=== PATIENT | female | born 1970 | race Caucasian/White ===

== ENCOUNTER 2023-08-03 02:51 | Inpatient (IN) | payer OTHER, SELFPAY ==
[2023-08-03] VITALS (148 sets, daily range): BP systolic 95–155; BP diastolic 62–133; PULSE 89–126; RESP 12–30; TEMP 36.6–37.2; O2SAT 81–99; BMI 26.6
--- NOTE | 2023-08-03 03:34 | USCV_ITS ---
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 History of cardiac ablation therapy. 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 History of cardiac ablation therapy. Previous Vascular Surgery: none Right Brachial BP: 118 / 78 Left Brachial BP: / Right Left Velocity (cm/s) Spectral Plaque Velocity (cm/s) Spectral Plaque Syst/Diast Broadening Syst/Diast Broadening 47.40/ 9.90 Min Homo Prox CCA 69.70 / 20.40 Min Homo 56.50/ 19.10 Min Homo Mid CCA 51.90 / 21.70 Min Homo 55.20/ 21.00 Min Hetro Distal CCA 60.50 / 29.60 Min Hetro 51.90/ 19.70 Min Hetro Prox ICA 44.00 / 17.70 Min Hetro 57.20/ 27.60 Min Hetro Mid ICA 75.60 / 44.00 Min Hetro 29.30/ 10.20 Min Hetro Distal ICA 77.40 / 40.70 Min Hetro 78.90 Min Homo ECA 54.60 Min Homo 1.01 ICA/CCA 1.11 Antegrade Vertebral Antegrade 41.40/ 16.40 cm/s 46.70/ 19.10 cm/s Tri Subclavian Tri 58.50 74.90 CONCLUSIONS Right ICA stenosis <50%. Mild atheromatous plaque right carotid bulb/ICA. Left ICA stenosis <50%. Mild atheromatous plaque left carotid bulb/ICA. Normal antegrade Doppler flow noted in the right vertebral artery. Normal antegrade Doppler flow noted in the left vertebral artery. Noe Celis MD (Electronically Signed) Final Date: 03 August 2023 10:07 S
--- NOTE | 2023-08-03 03:34 | USCV_ITS ---
Mary Moreno Age: 52 Gender: F : 1970 Exam Date: 08/03/2023 04:23 Ordering Phys: Zac Morrow MD Technologist: MICHAEL Exam Location: [facility] – [place], [place] Indication: aphasic CVA. History of ablation therapy. BP: 117 / 93 HR: 92 Rhythm: Sinus Technical Quality: Adequate MEASUREMENTS (Male / Female) Normal Values 2D ECHO LV Diastolic Diameter PLAX 3.8 cm 4.2 - 5.9 / 3.9 - 5.3 cm LV Systolic Diameter PLAX 3.0 cm IVS Diastolic Thickness 1.4 cm 0.6 - 1.0 / 0.6 - 0.9 cm IVS Systolic Thickness 1.8 cm LVPW Diastolic Thickness 1.0 cm 0.6 - 1.0 / 0.6 - 0.9 cm LVPW Systolic Thickness 1.1 cm LVOT Diameter 2.1 cm LV Ejection Fraction 2D Teich 39.7 % LV Ejection Fraction MOD 2C 32.4 % LV Ejection Fraction 2C AL 32.7 % LA Diameter 4.1 cm LA Width 3.9 cm LA Height 6.5 cm RA Width 2.5 cm RA Height 4.2 cm Aorta at Sinotubular Diameter 2.5 cm IVC Diameter 2.1 cm M-MODE Aortic Annulus Diameter 3.1 cm LA Ao Ratio MM 1.3 MV E Point Septal Separation 2.0 cm DOPPLER AV Peak Velocity 83.0 cm/s LVOT Peak Velocity 84.0 cm/s AV Area Cont Eq vti 3.6 cm squared AV Area Cont Eq pk 3.5 cm squared MV Peak Velocity 99.0 cm/s MV Area PHT 4.9 cm squared Mitral E to A Ratio 1.6 MV E' Velocity 52.5 cm/s Mitral E to MV E' Ratio 11.8 Mitral E to LV E' Lateral Ratio 10.3 Mitral E to LV E' Septal Ratio 14.1 TR Peak Velocity 293.3 cm/s TR Peak Gradient 34.4 mmHg TV Peak E Velocity 45.0 cm/s Right Atrial Pressure 10.0 mmHg Pulmonary Artery Systolic Pressu 44.4 mmHg PV Peak Velocity 54.0 cm/s RV Acceleration Time 0.1 s RV Ejection Time 0.3 s RV AcT/ET 0.2 FINDINGS Left Ventricle Left ventricle is normal size. LV systolic function is moderately reduced with EF of 35-40%. Moderate global hypokinesis. Anteroseptal wall is severely hypokinetic. Right Ventricle Normal in size and functon Right Atrium Normal in size Left Atrium Normal in size Mitral Valve Structurally normal mitral valve. Moderate mitral regurgitation. Aortic Valve Structurally normal aortic valve. No significant stenosis or regurgitation. Tricuspid Valve Moderate tricuspid regurgitation. RVSP is 45-50 mmHg. This is consistent with moderate pulmonary hypertension. Pulmonic Valve Not well visualized Pericardium Normal Aorta Normal in size IVC Dilated CONCLUSIONS LV systolic function is moderately reduced with EF of 35 to 40%. Moderate mitral regurgitation Moderate tricuspid regurgitation Moderate pulmonary hypertension IVC is dilated. No comparison studies are available. Mazin Bailey MD (Electronically Signed) Final Date: 03 August 2023 12:21 S
--- NOTE | 2023-08-03 03:36 | P.HP_ITS ---
Providers/Chief Complaint Admitting Physician: Zac Morrow MD Primary Care Provider: Flako Shen MD Chief Complaint: Stroke like symptoms History of Present Illness Mary Moreno is a 52 year old female with a past medical history of hidradenitis suppurativa, on Otezla, Cosentyx, spironolactone, was on antibiotic therapy, hypertension, who presents to [facility] from [place] due to concerns for strokelike symptoms, elevated leukocytosis, and lactic acid. Currently patient is alert oriented x 3, following all commands, she has no complaints of any focal weakness, no slurring of words, no facial droop, denies any focal weakness, she tells me she does not really remember the event, her does, her only complaint is headaches and neck pain. She tells me that she has never had headaches before or neck pain, no blurry vision, no photopsia or floaters, she does have neck pain with range of motion, no fevers, no chills, no nausea, vomiting. According to documentation and my discussion with ER physician, patient presented to ER at about 9 PM due to left- sided weakness, increased confusion and persistent headache, there was mild slurring of his words last known well normal was 6 PM, according to patient's family she had a seizure-like episode. In the emergency room I was told by ER physician that they did a CT head CTA, spoke to [facility] neurology, she was out of the window for tPA, and as she was back to normal she is not a candidate for tPA so they recommended inpatient monitoring, on lab workup she was found to have leukocytosis of 23,000 lactic acid of 5.2 urinalysis was within normal limits chest x-ray within normal limits liver function was within normal limits she does have hidradenitis suppurativa but no recent outbreaks, no focal evidence of infection, her blood sugars were elevated, anion gap was 26, CO2 was 14, she had received fluids, vancomycin, clindamycin. Currently during my examination she really does not have any complaints of dysuria no hematuria no flank pain no shortness of breath, no cough, no fevers, no chills. Her only complaint is a headache and neck pain, kerning sign negative Brudzinski sign negative, no fevers, no chills. She does report a history of alcohol use, daily use of alcohol, usually she drinks a shot of alcohol daily, no history of alcohol withdrawal seizures, no history of blacking out, no history of alcohol withdrawal Review of Systems Const: Denies: fever(s), chills, fatigue or malaise Eyes: Denies: change in vision ENMT: Denies: throat pain Card: Denies: chest pain Resp: Denies: dyspnea GI: Denies: abdominal pain : Denies: flank pain or difficulty voiding Musc: Denies: neck pain or back pain Skin/Breast: Denies: rash Neuro: Denies: headache(s), numbness in extremities, weakness in extremities, frequent falls, dizziness, Slurred speech present or difficulty communicating thoughts Psych: Denies: anxiety Endo: Denies: polyuria Medications/Allergies Home Medications Medication Instructions Recorded Confirmed Last Taken Type apremilast 30 mg tablet (Otezla) 30 mg PO 2XD 08/03/23 08/03/23 1 Day Ago History ~08/02/23 clonazepam 0.5 mg tablet 0.5 mg PO 2XD 08/03/23 08/03/23 1 Day Ago History ~08/02/23 fluoxetine 40 mg capsule 40 mg PO 1XD 08/03/23 08/03/23 1 Day Ago History ~08/02/23 hydrochlorothiazide 25 mg tablet 25 mg PO 1XD 08/03/23 08/03/23 1 Day Ago History ~08/02/23 metoprolol succinate 50 mg 50 mg PO 2XD Heart Rate 08/03/23 08/03/23 1 Day Ago History tablet,extended release 24 hr ~08/02/23 pantoprazole 40 mg tablet,delayed 40 mg PO 1XD 08/03/23 08/03/23 1 Day Ago History release ~08/02/23 secukinumab 150 mg/mL subcutaneous See Rx Instructions .Route .COMPLEX 08/03/23 08/03/23 3 Weeks Ago History pen injector (Cosentyx Pen 300 ~07/13/23 mg/2 Pens () spironolactone 100 mg tablet 100 mg PO 1XD 08/03/23 08/03/23 1 Day Ago History ~08/02/23 zolpidem 5 mg tablet 5 mg PO 1XD Sleep 08/03/23 08/03/23 Unknown History Allergies Allergy/AdvReac Type Severity Reaction Status Date / Time codeine Allergy Unknown Verified 08/03/23 03:02 Penicillins Allergy ALGY-Rash Verified 08/03/23 03:02 PFSH Acute PFSH: Medical History (Updated 08/03/23 @ 03:44 by Zac Morrow MD) History of atrial fibrillation History of hidradenitis suppurativa Surgical History (Updated 08/03/23 @ 03:42 by Zac Morrow MD) History of appendectomy History of cholecystectomy History of radiofrequency ablation procedure for cardiac arrhythmia Family History (Updated 08/03/23 @ 03:43 by Zac Morrow MD) Other CAD (coronary artery disease) Diabetes Social History (Updated 08/03/23 @ 03:43 by Zac Morrow MD) Smoking and tobacco/nicotine status: current every day tobacco/nicotine user e- cigarettes E-Cigarette Details: vaporizer device Alcohol intake: current Alcohol intake frequency: 0-2 Drinks per Day Alcohol type: hard liquor Substance/Drug Use: never Vitals/I&O/Wt Last Vital Signs O2 Del Method Room Air 08/03/23 02:59 Weight last 48 hrs Weight 77.111 kg Physical Exam Const: COMMON NORMALS: no acute distress and patient oriented x3 HENMT: COMMON NORMALS: normocephalic HEAD & SCALP: normocephalic Neck/C-Spine: COMMON NORMALS: no JVD Lymph: LYMPHATIC: no lymphadenopathy noted Resp: COMMON NORMALS: normal respiratory effort, No retractions, No use of accessory muscles and clear to auscultation bilaterally AUSCULTATION: clear to auscultation bilaterally Cardio: COMMON NORMALS: no JVD, regular rate, regular rhythm, S1 normal heart sound present and S2 normal heart sound present RATE: regular rate RHYTHM: regular rhythm HEART SOUNDS: S1 normal heart sound present and S2 normal heart sound present GI: COMMON NORMALS: Normal to inspection, nondistended, normoactive bowel sounds present, Soft to palpation, non-tender, No hepatosplenomegaly present, no masses and no bruits PALPATION: Yes Soft to palpation and Yes No hepatosplenomegaly present : COMMON NORMALS: Yes no CVA tenderness Extremity: COMMON NORMALS: capillary refill normal, no clubbing, cyanosis or edema, no calf tenderness and no pedal edema Neuro: COMMON NORMALS: patient oriented x3, CN's II-XII intact bilaterally, moves all extremities, no focal motor deficits and no sensory deficits noted Psych: COMMON NORMALS: mental status grossly normal A&P Assessment and plan (1) Transient ischemic attack: (2) Elevated lactic acid level: (3) Leukocytosis: (4) Seizure: Plan Transient ischemic attack -She does have a history of atrial fibrillation, status post ablation -Does have hypertension -Currently alert oriented x 3, following all commands no focal weakness denies stroke scale 0 -Seen at [facility], had stroke evaluation, ct head, cta head and neck within normal limits i was told -er provider spoke to neurology at [facility], not candidate for tpa, symptoms had resolved in er plan: -- Neurochecks -Aspiration precautions -NIH stroke scale -Aspirin -Statin -Continue home blood pressure medications -Telemetry monitoring -Cardiac echo -Carotid artery ultrasound -PT OT -Speech therapy eval Seizure -Etiology unclear -Witnessed by family members -Seizure precautions Leukocytosis -Etiology unclear could be reactive -Workup, CRP, Pro-Fabio, sed rate, blood cultures, repeat UA, repeat blood work -With complaints of headaches, neck pain Kernig's sign negative, Babinski sign negative with leukocytosis, elevated lactic acid -Concern for possible meningitis? -Continue vancomycin -Has a allergy to penicillin, rocephin -Will consider lumbar puncture in the morning, based on clinical progress and further broad workup Lactic acidosis -Etiology unclear could be dehydration -Workup as above, A1c, ketones Neck pain -CT neck Hidradenitis suppurativa -On Otezla alcohol use, does have a fine tremor on exam -[facility] protocol full code scd for dvt propylaxis Attestations Medical Necessity Statement*: Patient requires hospitalization, inpatient, greater than 2 midnights, for TIA, seizure, leukocytosis, elevated lactic acid Diagnoses Transient ischemic attack G45.9 Elevated lactic acid level R79.89 Leukocytosis D72.829 Seizure R56.9
--- NOTE | 2023-08-03 03:40 | CT_ITS ---
WS: [id number] CT CERVICAL TRAUMA TECHNIQUE: Noncontrast CT of the cervical spine with coronal and sagittal reformatted images. CLINICAL INFORMATION: neck pain COMPARISON: None. DLP: 1418.[address] scans at [facility] use at least one of these dose optimization techniques: automated e xposure control; mA and/or kV adjustment per patient size (includes targeted exams where dose is matc hed to clinical indication); or iterative reconstruction. FINDINGS: Straightening of the normal cervical lordosis. Normal craniocervical junction. Normal C1-C2 articulat ion. Dens is normal in appearance. Normal occipital condyles. No high-grade spinal canal narrowing. N ormal C1 ring. No evidence of acute fracture or dislocation. Normal prevertebral soft tissues. Mastoids air cells are well aerated. IMPRESSION: No evidence of acute fracture or dislocation.
--- NOTE | 2023-08-03 03:40 | CT_ITS ---
WS: [id number] CT HEAD TECHNIQUE: Noncontrast CT of the head obtained from the skullbase to the vertex. CLINICAL INFORMATION: headache COMPARISON: None. DLP: 1418.[address] scans at [facility] use at least one of these dose optimization techniques: automated e xposure control; mA and/or kV adjustment per patient size (includes targeted exams where dose is matc hed to clinical indication); or iterative reconstruction. FINDINGS: No evidence of intracranial hemorrhage or mass effect. Minimal small vessel changes. No significant p arenchymal volume loss. Ventricular system and basal cisterns are patent. No extra-axial fluid colle ctions. No evidence of mass or mass effect. Normal fraga-white differentiation Mild mucosal thickening ethmoid air cells. Mastoid air cells are well aerated. Retention cyst or poly p in the sphenoid sinus measuring 2.1 cm. IMPRESSION: 1. No evidence of intracranial hemorrhage or mass effect. 2. Minimal small vessel changes. No significant parenchymal volume loss. 3. Retention cyst or polyp in the sphenoid sinus measuring 2.1 cm. 4. No acute intracranial findings.
[2023-08-03 04:10] LABS: Erythrocyte Sedimentation Rate 4 mm/hr (0-15)
[2023-08-03 04:12] LABS: Basophils # 0.1 10^3/uL (0.0-0.1); Basophils % 0.4 %; Eosinophils # 0.1 10^3/uL (0.0-0.8); Eosinophils % 0.8 %; Hematocrit 33.6 % (36-47); Lymphocytes # 2.4 10^3/uL (0.8-4.8); Lymphocytes % 15.2 %; Mean Corpuscular HGB Conc 34.2 g/dL (30-55); Mean Corpuscular Volume 96.6 fl (85-98); Monocytes # 1.2 10^3/uL (0.2-0.9); Monocytes % 7.6 %; Neutrophils # 12.05 10^3/uL (1.8-7.7); Neutrophils % 75.5 %; Nucleated Red Blood Cells % 0 %; Platelet Count 244 10^3/cmm (157-399); Red Blood Count 3.48 10^6/uL (3.85-5.65); Red Cell Distribution Width 12.4 % (12.1-15.1); White Blood Count 15.95 10^3/uL (3.29-11.43)
[2023-08-03] MEDS: pantoprazole 40 mg SDV IVP (04:21)
[2023-08-03] MEDS: cefTRIAXone 1,000 MG in sodium chloride 0.9% (plus) 50 ML 100 MG IV (04:21)
[2023-08-03] MEDS: sodium chloride 0.9% 1,000 ML 75 ML IV (04:21)
[2023-08-03 04:23] LABS: Ketone (Acetest) Serum Negative (Negative)
[2023-08-03] MEDS: TRAMadol 50 mg Tablet PO ×2 (04:26→11:17)
[2023-08-03 04:27] LABS: INR 0.98 (0.8-1.2)
[2023-08-03 04:30] LABS: Estmated Average Glucose 114; Hemoglobin A1C 5.6 % (4.0-6.0)
[2023-08-03 04:31] LABS: Ammonia 26 umol/L (11-51)
[2023-08-03 04:41] LABS: Procalcitonin 0.06 ng/mL (0-0.5); Thyroid Stimulating Hormone 1.26 uIU/mL (0.27-4.20); Troponin(5th) Baseline 354 ng/L (0-10)
[2023-08-03 04:50] LABS: Folate Level 6.8 ng/mL (4.8-37.3)
[2023-08-03 04:52] LABS: Alanine Aminotransferase 81 U/L (0-33); Albumin Level 3.8 g/dL (3.5-5.2); Alkaline Phosphatase 129 U/L (35-105); Anion Gap 20.4 (5-19); Aspartate Amino Transferase 195 U/L (0-32); Blood Urea Nitrogen 16 mg/dL (6-20); C Reactive Protein 6.2 mg/L (0.0-4.9); Calcium 9.3 mg/dL (8.5-10.5); Carbon Dioxide 20 mmol/L (22-29); Chloride 102 mmol/L (98-107); Chol HDL Ratio 3.43 mg/dL (0.0-4.40); Cholesterol 223 mg/dL (0-200); Creatine Phosphokinase 162 U/L (26-192); Creatinine Clr Calc Pharmacy 64.0375; Globulin 2.7 g/dL (1.3-4.6); Glomerular Filtration Rate 52.2 mL/min (90-130); Glucose 105 mg/dL (65-115); HDL Cholesterol 65 mg/dL (60-100); LDL Cholesterol Calculated 101 mg/dL (50-129); LDL HDL Ratio 1.55 RATIO (0.00-3.22); Magnesium 1.4 mg/dL (1.7-2.3); Osmolality Calculated 288 mOsm/kg (285-295); Potassium 4.4 mmol/L (3.5-5.1); Sodium 138 mmol/L (136-145); Total Bilirubin 0.2 mg/dL (0.15-1.2); Total Protein 6.5 g/dL (6.6-8.7); Triglycerides 283 mg/dL (0-150)
[2023-08-03 04:53] LABS: Alcohol Level < 10 mg/dL (0-10)
[2023-08-03] MEDS: LORazepam 2 mg/mL INJ 10 mL MDV IVP ×2 (05:05→19:58)
--- NOTE | 2023-08-03 05:28 | ECG_ITS ---
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 Measurements Intervals [place] Rate: 96 P: 68 HI: 167 QRS: -36 QRSD: 103 T: 30 QT: 370 QTc: 470 Interpretive Statements SINUS RHYTHM LEFT AXIS DEVIATION [QRS AXIS < -30] PATTERN CONSISTENT WITH PULMONARY DISEASE NONSPECIFIC T-WAVE ABNORMALITY No previous ECG available for comparison Electronically Signed On 08-03-2023 6:55:37 BRAKE REPAIRER HYDRA[employer]IC by Jhonny Camilo M.D. [email or web address]
[2023-08-03 05:29] LABS: Vitamin B12 1755 pg/mL (232-1245)
[2023-08-03] MEDS: ondansetron 2 mg/ML SDV 2 mL 4 MG IVP ×2 (05:35→18:23)
[2023-08-03] MEDS: vancomycin 1,500 MG/300 ML PIGGYBACK 200 MG IV (05:42)
[2023-08-03 05:51] LABS: Add Urine Microscopic? YES; Bilirubin Urine 1+ (Negative); Blood Urine 3+ (Negative); Glucose Urine UA Norm (Normal); Ketones Urine 1+ (Negative); Leukocyte Esterase Urine Trace (Negative); Nitrate Urine Negative (Negative); Protein Urine 1+ (Negative); Specific Gravity, Urine 1.015 (1.005-1.030); Urine Appearance SL Hazy (CLEAR); Urine Color Yellow (Yellow); Urobilinogen Urine Neg (Negative); pH Urine 6.5 (5-7)
[2023-08-03 05:52] LABS: Add Urine Culture? No; Bacteria Urine 1+ /hpf; RBC Urine 15-25 /hpf (0-2); Squamous Epithelial Cell Urine 15-25 /hpf (0-5); WBC Urine 0-4 /hpf (0-5)
[2023-08-03 05:54] LABS: Amphetamines Screen Urine Negative (Negative); Barbiturates Screen Urine Negative (Negative); Benzodiazepines Screen Urine Positive (Negative); Cocaine Screen Urine Negative (Negative); Opiate Screen Urine Positive (Negative); PCP Screen Urine Negative (Negative); THC Screen Urine Negative (Negative)
[2023-08-03 05:56] LABS: Reflex Lactate Order REFLEX LACTIC ORDERD
[2023-08-03 06:39] LABS: Troponin 5 2HR Delta -2.8 ABS# (0-10)
[2023-08-03 06:41] LABS: Troponin 5 2HR 351.2 ng/L (0-10)
[2023-08-03 07:21] LABS: Lactic Acid level (Lactate) 2.9 mmol/L (0.5-2.2)
[2023-08-03] MEDS: heparin drip 25,000 UNIT/500 ML PREMIX 21.59 UNIT IV (07:49)
[2023-08-03] MEDS: folic acid 1 mg Tablet PO (08:02)
[2023-08-03] MEDS: metoprolol tartrate 50 mg Tablet PO ×2 (08:02→21:39)
[2023-08-03] MEDS: multivitamin therapeutic Tablet 1 TAB PO (08:02)
[2023-08-03] MEDS: aspirin 81 mg EC Tablet PO (08:02)
[2023-08-03] MEDS: thiamine 100 mg Tablet PO (08:02)
--- NOTE | 2023-08-03 08:19 | PC.PHAR ---
PHARMACY TO DOSE VANCOMYCIN Vanco Initial Dosing Patient Information Sex F M/F Last Name JAMES AGE 52 years First Name MILAGROS Ht 67 inches : 1970 ABW 77.111 kg Location: ICU-6 IBW 61.6 kg If loading dose given: DW 77.111 kg Loading DOSE: 1500 mg SCr 1.1 mg/dl This Dose = 19.5 mg/kg CrCl 58.2 ml/min 1st dose Cmax: 25.3 mcg/ml Vd 57.16716 liters Time elapsed: 3.0 hrs Ke 0.053 hrs-1 Serum Conc. = 21.6 mcg/ml t1/2 13 hrs Hrs until 20 mcg/ml 5.4 hrs Hrs until 15 mcg/ml 10.9 hours Hrs until 10 mcg/ml 18.6 hours Dose Tau (Freq) Levels expected Standard 1250 18 Cmax 33.5 Targets 16.21 19.7 Cpeak 31.8 25 to 40 mg/kg hours Cmin 14.4 10 to 20
--- NOTE | 2023-08-03 09:28 | ECG_ITS ---
[facility] Test Date: 2023-08-03 Pat Name: Mary Moreno Department: Room: 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 Measurements Intervals [place] Rate: 98 P: 76 PA: 186 QRS: -36 QRSD: 92 T: 8 QT: 331 QTc: 424 Interpretive Statements SINUS RHYTHM LEFT AXIS DEVIATION [QRS AXIS < -30] PATTERN CONSISTENT WITH PULMONARY DISEASE NONSPECIFIC T-WAVE ABNORMALITY Compared to ECG 08/03/2023 05:46:46 No significant changes Electronically Signed On 08-03-2023 11:29:08 PHYSICIAN OFFICE SPECIALIST by Mazin Bailey M.D. [id number]
[2023-08-03 11:11] LABS: Troponin 5 6HR 264.8 ng/L (0-10)
[2023-08-03] MEDS: cloNIDine 0.1 mg Tablet PO ×2 (11:17→18:18)
[2023-08-03] MEDS: hydroCHLOROthiazide 25 mg Tablet PO (11:18)
--- NOTE | 2023-08-03 13:30 | XR_ITS ---
WS: [id number] XR chest 1V portable [id number] REASON FOR EXAM: Post PICC insertion FINDINGS: Right arm PICC line placement. The tip is in the distal third of the SVC above the right atrium. Interstitial lung opacities throughout both lungs with fluid in the minor fissure compatible with pul monary edema. IMPRESSION: Right arm PICC line in proper position and ready for use. Proper position of the PICC line position was confirmed with the x-ray technologist over the phone at 2:10 p.m.
--- NOTE | 2023-08-03 14:04 | PM.MISC ---
Miscellaneous Note Purpose of Documentation: Overnight labs and H&P reviewed. Patient continues to complain of headache. Relates this to both sides of her forehead and then radiating down into her neck and bilateral shoulders. She has a history of the shingles and what appears to be the C3 level distribution in the past however has not had an outbreak in many years. No rashes encountered today. Also complaining of back and chest discomfort which does not appear to have been relieved adequately since last night. Downtrending troponins, 6-hour troponin down to 254 with a negative delta of 89. EKG without acute ST-T wave changes. Echocardiogram shows anteroseptal hypokinesia with a reduced ejection fraction of 35 to 40%, concern for possible NSTEMI. Cardiology consulted. Continue heparin drip. Continue aspirin. Patient has required to be placed on supplemental oxygen during this morning. Stat chest x-ray to be taken. Discontinue IV fluids. Lasix 40 mg IV x 1 now. She is additionally complaining of symptoms of photosensitivity, she states that the lights from the monitor in the room lights are bothering her right now. It appears to trigger her headache. Additionally complaining of movements at the neck being bothersome for her. Given that patient is on treatment with Cosentyx and Otezla, would consider her relatively immunocompromised. Meningitis is a possibility. Discussed with radiology regarding lumbar puncture under fluoroscopy, however this would not be able to be obtained until heparin drip has been hold for 4 to 6 hours. Even if we were to hold the heparin drip this afternoon, radiology services would not be available later in the evening to do the lumbar puncture. Blood cultures taken and pending However at this time while undergoing infectious evaluation, would not want to delay treatment for meningitis while awaiting LP. Continue antibiotic coverage with meropenem and vancomycin and add acyclovir 10 mg/kg every 8 hours. Awaiting blood cultures. PICC line to be placed today due to poor peripheral IV access, need for frequent blood draws and multiple current medications ongoing.
--- NOTE | 2023-08-03 14:15 | PC.NURSE ---
Triple lumen PICC placed to right basilic vein. Referred to vascular access nurse due to poor access and need for multiple medications, including heparin and vancomycin. Discussed procedure with patient and patient family. Risks and benefits explained and informed consent obtained from patient. Right arm assessed with right basilic vein measuring 4.8 mm, straight, and apparent best choice for placement. Using sterile technique and MST, right basilic vein accessed x 1 stick. Mid-arm circumference measured 10 cm from right AC 26 cm. Trimmed cath 41 cm with 0 cm external length noted. CXR shows tip in distal third of SVC, in good position for use per radiologist. Line secured with stat-lock. Insertion site covered with Biopatch and TSM. Report given to bedside nurseAdalberto.
[2023-08-03] MEDS: FUROsemide 10 mg/mL SDV 4mL 40 MG IVP (14:23)
[2023-08-03 14:32] LABS: ABG PCO2 33.4 mmHg (35-45); ABG PH Result 7.41 (7.35-7.45); Alveolar-Arterial Oxygen Gradi 6.7 mmHg (5-10); Arterial Blood Gas Hematocrit 35.8 % (37-47); Base Excess ABG -2.6 mmol/L (-2.0-2.0); Blood Gas Allen Test Pos; Blood Gas Operator Identificat MONRO; Blood Gas Sample Site Radial, right; Blood Gas Sample Type Arterial; Carboxyhemoglobin 0.4 %THgb (0.4-20.1); HCO3 ABG 21.4 mmol/L (22-26); HGB O2 Sat 87.4 % (95-100); Ionized Calcium Level - ABG 1.3 mmol/L (1.1-1.4); Methemoglobin 1.1 % (0.4-1.5); Oxygen Device OXY MASK; Oxygen Saturation ABG 88.8; PO2 ABG 57.7 mmHg (80.0-100.0); Potassium Level - ABG 4.1 mmol/L (3.5-5.0); Total Hemoglobin 11.7 g/dL (12-16)
[2023-08-03 15:21] LABS: Lactate (Lactic Acid level) 2.1 mmol/L (0.5-2.2)
[2023-08-03 15:37] LABS: Partial Thromboplastin Time 163.9 SECONDS (23.9-36.7)
--- NOTE | 2023-08-03 16:00 | PC.NURSE ---
PTT resulted 163.9, Dr. Nichols contacted and verbal orders to hold drip for four hours and then check PTT before restart.
--- NOTE | 2023-08-03 16:49 | P.CONIM_ITS ---
Providers/Reason For Consult 2 Consulting Physician/Specialty*: IRAJ Arriola MD/cardiology Reason for Consult*: Patient with elevated troponin T/TIA/possible meningitis Requesting Physician: Dr Rafaela Nichols Attending Physician: Ofe Nichols MD Primary Care Provider: Flako Shen MD History of Present Illness History of Present Illness Mary Moreno is a 52 year old female is admitted to hospital through the emergency room where she presented with complaints of stroke like symptoms. She was found to have elevated troponin T and features of congestive heart failure. Cardiology consult is requested for further cardiac evaluation recommendations. This patient apparently is a very poor historian. She do not recall the details of what exactly happened to her, which brought her to the hospital. According to the patient's , she been having severe headache for the last 2 weeks or so. She has a history of migrainous headache and the was hoping that this might go away. But for the last 2 days, the symptoms are worse. She was found to be confused and disoriented. She was making some un purposeful movements with her upper extremities and also found to be very unsteady in her gait. When he tried to talk to her, she was making some lip movements but could not talk. For these complaints, she was initially taken to the [facility] emergency room. While she was in the emergency room, she reportedly had some seizure-like activities. She was transferred to our facility for further neuro monitoring. Reportedly, she had some stroke like symptoms. The stroke like symptoms gradually improved. She did not meet the criteria for tPA. According to the , she had some chest tightness/heaviness while being in the emergency room. She continues to have some tight feeling in the chest. She also was found to be getting short of breath. She did not have any fever, chills or cough. No palpitation or syncopal episodes. She continues to have some headache and neck pain. As per the , she never had any altered mental status with the migrainous headaches in the past. She has a history of hidradenitis suppurativa and has been taking antibiotic. She was found to have elevated white cell count and lactic acid. In view of her severe headache and neck pain, meningitis is a consideration and she is awaiting lumbar puncture. Has a history of atrial fibrillation. Approximately 10 years ago, she had a ablation treatment in [place]. she had 2 ablations. She had a cardiac catheterization prior to this and was told there were no blockages. Currently she is being followed by a staff assistant in [place]. She goes for the yearly follow-up appointments. Her mother had myocardial infarction in her 50s and had open heart surgery. One of her sisters also is known to have heart problems but the details are not known. No other relevant family history. She used to smoke a pack a day also for more than 30 years. For the last a few months, she been vaping. She also take a drink whiskey every day. On antibiotic. Review of Systems 2 Narrative: CONSTITUTIONAL: No fever or chills. EYES: No blurring of vision or other visual disturbances lately. ENT: No hoarseness of voice, auditory disturbances or sore throat. CARDIOVASCULAR: As mentioned above. RESPIRATORY: Shortness of breath as mentioned above GASTROINTESTINAL: No hematemesis or melena. GENITOURINARY: No dysuria or hematuria. INTEGUMENTARY: Hidradenitis suppurativa as mentioned above NEURO: Severe headache, neck pain and altered mental status as mentioned above PSYCHIATRIC: No history of psychosis or major depression. HEMATOLOGIC: No bleeding disorders or significant anemia. ENDOCRINE: No history of polyuria or polydipsia. MUSCULOSKELETAL: No recent joint pain or swelling. ALLERGY/IMMUNOLOGY: As mentioned above. Medications/Allergies Home Medications Medication Instructions Recorded Confirmed Last Taken Type B12 Active 500 mcg PO 1XD 08/03/23 08/03/23 1 Day Ago History ~08/02/23 apremilast 30 mg tablet (Otezla) 30 mg PO 2XD 08/03/23 08/03/23 1 Day Ago History ~08/02/23 carbonyl iron-calcium 50 mg-117 mg 65 tab PO 1XD 08/03/23 08/03/23 1 Day Ago History tablet ~08/02/23 clonazepam 0.5 mg tablet 0.5 mg PO 2XD 08/03/23 08/03/23 1 Day Ago History ~08/02/23 clonidine HCl 0.1 mg tablet 0.1 mg PO 2XD 08/03/23 08/03/23 1 Day Ago History ~08/02/23 dicyclomine 20 mg tablet 20 mg PO 2XD 08/03/23 08/03/23 1 Day Ago History ~08/02/23 fluoxetine 40 mg capsule 40 mg PO 1XD 08/03/23 08/03/23 1 Day Ago History ~08/02/23 hydrochlorothiazide 25 mg tablet 25 mg PO 1XD 08/03/23 08/03/23 1 Day Ago History ~08/02/23 metoclopramide HCl 10 mg tablet 10 mg PO QID 08/03/23 08/03/23 1 Day Ago History ~08/02/23 metoprolol succinate 50 mg 50 mg PO 2XD Heart Rate 08/03/23 08/03/23 1 Day Ago History tablet,extended release 24 hr ~08/02/23 pantoprazole 40 mg tablet,delayed 40 mg PO 1XD 08/03/23 08/03/23 1 Day Ago History release ~08/02/23 potassium 99 mg PO 2XD 08/03/23 08/03/23 1 Day Ago History ~08/02/23 secukinumab 150 mg/mL subcutaneous See Rx Instructions .Route .COMPLEX 08/03/23 08/03/23 3 Weeks Ago History pen injector (Cosentyx Pen 300 ~07/13/23 mg/2 Pens () spironolactone 100 mg tablet 100 mg PO 1XD 08/03/23 08/03/23 1 Day Ago History ~08/02/23 zolpidem 5 mg tablet 5 mg PO 1XD Sleep 08/03/23 08/03/23 2 Days Ago History ~08/01/23 Allergies Allergy/AdvReac Type Severity Reaction Status Date / Time codeine Allergy Unknown Verified 08/03/23 03:02 Penicillins Allergy ALGY-Rash Verified 08/03/23 03:02 Current Medications Generic Name Dose Route Start Last Admin Trade Name Jhony PRN Reason Stop Dose Admin Aspirin 81 mg 08/03/23 09:00 08/03/23 08:02 Aspirin 81 Mg Ec Tablet PO 81 mg DAILY KYLEE Administration Clonidine HCl 0.1 mg 08/03/23 09:00 08/03/23 11:17 Clonidine 0.1 Mg Tablet PO 0.1 mg BID KYLEE Administration Folic Acid 1 mg 08/03/23 09:00 08/03/23 08:02 Folic Acid 1 Mg Tablet PO 1 mg DAILY KYLEE Administration Hydrochlorothiazide 25 mg 08/03/23 09:00 08/03/23 11:18 Hydrochlorothiazide 25 Mg Tablet PO 25 mg DAILY KYLEE Administration Heparin Sodium/Sodium Chloride 25,000 unit in 500 mls @ 0 mls/hr 08/03/23 06:45 08/03/23 16:00 Heparin Drip IV 0 unit/kg/hr .Q0M KYLEE 0 mls/hr Titration Protocol Per Protocol Acyclovir 800 mg in 400 mls @ 400 mls/hr 08/03/23 14:00 08/03/23 16:28 Zovirax IV Infused Q8H KYLEE Infusion Meropenem 2,000 mg/ Sodium 100 mls @ 100 mls/hr 08/03/23 14:30 08/03/23 16:06 Chloride IV Infused Q8H KYLEE Infusion Lorazepam 2 mg 08/03/23 03:31 08/03/23 05:05 Lorazepam 2 Mg/Ml Inj 10 Ml Mdv IVP 2 mg PRN PRN Administration WITHDRAWAL Protocol Metoprolol Tartrate 50 mg 08/03/23 09:00 08/03/23 08:02 Metoprolol Tartrate 50 Mg Tablet PO 50 mg BID@0900,2100 KYLEE Administration Multivitamins Therapeutic 1 tab 08/03/23 09:00 08/03/23 08:02 Multivitamin Therapeutic Tablet PO 1 tab DAILY KYLEE Administration Ondansetron HCl 4 mg 08/03/23 03:27 08/03/23 05:35 Ondansetron 2 Mg/Ml Sdv 2 Ml IVP 4 mg Q8H PRN Administration vomiting, or N/V if npo Pantoprazole Sodium 40 mg 08/03/23 03:30 08/03/23 04:21 Pantoprazole 40 Mg Sdv IVP 40 mg Q24H KYLEE Administration Thiamine Mononitrate 100 mg 08/03/23 09:00 08/03/23 08:02 Thiamine 100 Mg Tablet PO 100 mg DAILY KYLEE Administration Tramadol HCl 50 mg 08/03/23 03:51 08/03/23 11:17 Tramadol 50 Mg Tablet PO 50 mg Q4H PRN Administration MODERATE PAIN PFSH Acute 2 PFSH: Medical History History of atrial fibrillation History of hidradenitis suppurativa Surgical History History of appendectomy History of cholecystectomy History of radiofrequency ablation procedure for cardiac arrhythmia Family History Other CAD (coronary artery disease) Diabetes Social History Smoking and tobacco/nicotine status: current every day tobacco/nicotine user e- cigarettes E-Cigarette Details: vaporizer device Alcohol intake: current Alcohol intake frequency: 0-2 Drinks per Day Alcohol type: hard liquor Substance/Drug Use: never Vitals/I&O/Wt Last Vital Signs Temp 99.0 F 08/03/23 16:00 Pulse 124 H 08/03/23 16:00 Resp 19 H 08/03/23 16:00 BP 148/91 08/03/23 16:00 Pulse Ox 99 08/03/23 16:00 O2 Del Method Oxymask 08/03/23 16:00 O2 Flow Rate 15 08/03/23 14:35 08/03/23 08/03/23 08/03/23 06:59 14:59 22:59 Intake Total 244 / 244 550 / 550 676.678 / 1226.678 Output Total 200 / 200 Balance 244 / 244 350 / 350 676.678 / 1026.678 Weight last 48 hrs Weight 170 lb Weight 170 lb Physical Exam 2 Narrative: GENERAL: The patient is alert and oriented times three. Not in any acute distress. HEENT: No significant pallor, icterus or lymphadenopathy.Oral cavity: There are no mucous membrane lesions. NECK: Trachea appears to be central. No masses noted. No JVD or thyromegaly appreciated. RESPIRATORY: Chest is symmetrical. No intercostals muscle retraction or any accessory muscle activation. There is no chest wall tenderness. Breath sounds are heard bilaterally. No rales or rhonchi heard. No evidence of any consolidation. BREASTS: Deferred. HEART: The heart sounds are normal. No S3 or S4. No significant murmurs. No pericardial rub ABDOMEN: No vessel pulsations or distention. No tenderness. No organomegaly appreciated. Bowel sounds are normally heard. : Deferred. RECTAL: Deferred. LYMPHATIC: No lymphadenopathy noted in the neck. EXTREMITIES: No edema or cyanosis. No clubbing. MUSCULOSKELETAL: No acute joint deformities or swelling SKIN: There are no significant rashes or ecchymosis NEUROPSYCHIATRIC: The patient is alert and oriented x3. Appears to be in a good mood. No tremors or rigidity noted. Urinary Catheter Management: Duenas: Cath Placed During This Visit: yes Urinary Catheter Date of Insertion: 08/03/23 Urinary Catheter Time of Insertion: 15:33 Data 08/04/23 03:32 08/04/23 03:32 Other Labs: Laboratory Last Values WBC 15.95 10^3/uL (3.29-11.43) H 08/03/23 03:51 RBC 3.48 10^6/uL (3.85-5.65) L 08/03/23 03:51 Hgb 11.50 g/dL (11.27-16.99) 08/03/23 03:51 Hct 33.6 % (36-47) L 08/03/23 03:51 MCV 96.6 fl (85-98) 08/03/23 03:51 MCH 33.0 pg (27-33) 08/03/23 03:51 MCHC 34.2 g/dL (30-55) 08/03/23 03:51 RDW 12.4 % (12.1-15.1) 08/03/23 03:51 Plt Count 244 10^3/cmm (157-399) 08/03/23 03:51 MPV 10.0 fL (7.4-10.4) 08/03/23 03:51 Neut % (Auto) 75.5 % 08/03/23 03:51 Lymph % (Auto) 15.2 % 08/03/23 03:51 Smyth % (Auto) 7.6 % 08/03/23 03:51 Eos % (Auto) 0.8 % 08/03/23 03:51 Baso % (Auto) 0.4 % 08/03/23 03:51 Neut # (Auto) 12.05 10^3/uL (1.8-7.7) H 08/03/23 03:51 Lymph # (Auto) 2.4 10^3/uL (0.8-4.8) 08/03/23 03:51 Smyth # (Auto) 1.2 10^3/uL (0.2-0.9) H 08/03/23 03:51 Eos # (Auto) 0.1 10^3/uL (0.0-0.8) 08/03/23 03:51 Baso # (Auto) 0.1 10^3/uL (0.0-0.1) 08/03/23 03:51 Nucleated RBC % (auto) 0 % 08/03/23 03:51 Nucleated RBCs # 0.0 /100WBC 08/03/23 03:51 ESR 4 mm/hr (0-15) 08/03/23 03:51 PT 13.30 SECONDS (12.1-14.9) 08/03/23 03:51 INR 0.98 (0.8-1.2) 08/03/23 03:51 APTT 163.9 SECONDS (23.9-36.7) H* 08/03/23 14:35 Specimen Type Arterial 08/03/23 14:18 Sample Site Radial, right 08/03/23 14:18 ABG pH 7.41 (7.35-7.45) 08/03/23 14:18 ABG pCO2 33.4 mmHg (35-45) L 08/03/23 14:18 ABG pO2 57.7 mmHg (80.0-100.0) L 08/03/23 14:18 ABG HCO3 21.4 mmol/L (22-26) L 08/03/23 14:18 ABG O2 Saturation 88.8 08/03/23 14:18 ABG Base Excess -2.6 mmol/L (-2.0-2.0) L 08/03/23 14:18 Fidel Test Pos 08/03/23 14:18 A-a O2 Gradient 6.7 mmHg (5-10) 08/03/23 14:18 Hematocrit 35.8 % (37-47) L 08/03/23 14:18 Hgb O2 Saturation 87.4 % (95-100) L 08/03/23 14:18 Carboxyhemoglobin 0.4 %THgb (0.4-20.1) 08/03/23 14:18 Methemoglobin 1.1 % (0.4-1.5) 08/03/23 14:18 Total Hemoglobin 11.7 g/dL (12-16) L 08/03/23 14:18 Sodium 139.0 mmol/L (131-143) 08/03/23 14:18 Potassium 4.1 mmol/L (3.5-5.0) 08/03/23 14:18 Glucose 117.0 mg/dL (70-115) H 08/03/23 14:18 Ionized Calcium 1.3 mmol/L (1.1-1.4) 08/03/23 14:18 O2 Delivery Device Oxy mask 08/03/23 14:18 O2 Liters/Min 15.0 % 08/03/23 14:18 Spring Clipper ID Monro 08/03/23 14:18 Sodium 138 mmol/L (136-145) 08/03/23 03:51 Potassium 4.4 mmol/L (3.5-5.1) 08/03/23 03:51 Chloride 102 mmol/L (98-107) 08/03/23 03:51 Carbon Dioxide 20 mmol/L (22-29) L 08/03/23 03:51 Anion Gap 20.4 (5-19) H 08/03/23 03:51 BUN 16 mg/dL (6-20) 08/03/23 03:51 Creatinine 1.1 mg/dL (0.5-0.9) H 08/03/23 03:51 GFR Calculation 52.2 mL/min (90-130) L 08/03/23 03:51 Glucose 105 mg/dL (65-115) 08/03/23 03:51 Estimat Average Glucose 114 08/03/23 03:51 Hemoglobin A1c 5.6 % (4.0-6.0) 08/03/23 03:51 Calculated Osmolality 288 mOsm/kg (285-295) 08/03/23 03:51 Lactic Acid 3.0 mmol/L (0.5-2.2) H 08/03/23 03:51 Lactic Acid (Sepsis) 2.9 mmol/L (0.5-2.2) H 08/03/23 06:53 Lactate 2.1 mmol/L (0.5-2.2) 08/03/23 14:35 Calcium 9.3 mg/dL (8.5-10.5) 08/03/23 03:51 Magnesium 1.4 mg/dL (1.7-2.3) L 08/03/23 03:51 Total Bilirubin 0.2 mg/dL (0.15-1.2) 08/03/23 03:51 AST 195 U/L (0-32) H 08/03/23 03:51 ALT 81 U/L (0-33) H 08/03/23 03:51 Alkaline Phosphatase 129 U/L (35-105) H 08/03/23 03:51 Ammonia 26 umol/L (11-51) 08/03/23 03:51 Creatine Kinase 162 U/L (26-192) 08/03/23 03:51 Troponin T Baseline 354 ng/L (0-10) H* 08/03/23 03:51 Troponin T 120 Minute 351.2 ng/L (0-10) H 08/03/23 06:08 Delta Troponin T -2.8 ABS# (0-10) L 08/03/23 06:08 Troponin T Hi Sens 6Hr 264.8 ng/L (0-10) H 08/03/23 10:32 Troponin T Hi Sens 6Hr Delta -89.2 ng/L (0-12) L 08/03/23 10:32 C-Reactive Protein 6.2 mg/L (0.0-4.9) H 08/03/23 03:51 Total Protein 6.5 g/dL (6.6-8.7) L 08/03/23 03:51 Albumin 3.8 g/dL (3.5-5.2) 08/03/23 03:51 Globulin 2.7 g/dL (1.3-4.6) 08/03/23 03:51 Triglycerides 283 mg/dL (0-150) H 08/03/23 03:51 Cholesterol 223 mg/dL (0-200) H 08/03/23 03:51 LDL Cholesterol, Calc 101 mg/dL (50-129) 08/03/23 03:51 HDL Cholesterol 65 mg/dL (60-100) 08/03/23 03:51 LDL/HDL Ratio 1.55 RATIO (0.00-3.22) 08/03/23 03:51 Cholesterol/HDL Ratio 3.43 mg/dL (0.0-4.40) 08/03/23 03:51 Vitamin B12 1755 pg/mL (232-1245) H 08/03/23 03:51 Folate 6.8 ng/mL (4.8-37.3) 08/03/23 03:51 Procalcitonin 0.06 ng/mL (0-0.5) 08/03/23 03:51 TSH 1.26 uIU/mL (0.27-4.20) 08/03/23 03:51 Urine Color Yellow (Yellow) 08/03/23 05:20 Urine Appearance Sl hazy (CLEAR) A 08/03/23 05:20 Urine pH 6.5 (5-7) 08/03/23 05:20 Ur Specific Grulla 1.015 (1.005-1.030) 08/03/23 05:20 Urine Protein 1+ (Negative) H 08/03/23 05:20 Urine Glucose (UA) Norm (Normal) 08/03/23 05:20 Urine Ketones 1+ (Negative) H 08/03/23 05:20 Urine Blood 3+ (Negative) H 08/03/23 05:20 Urine Nitrate Negative (Negative) 08/03/23 05:20 Urine Bilirubin 1+ (Negative) H 08/03/23 05:20 Urine Urobilinogen Neg mg/dL (Negative) 08/03/23 05:20 Ur Leukocyte Esterase Trace (Negative) H 08/03/23 05:20 Urine RBC 15-25 /hpf (0-2) H 08/03/23 05:20 Urine WBC 0-4 /hpf (0-5) H 08/03/23 05:20 Ur Squamous Epith Cells 15-25 /hpf (0-5) H 08/03/23 05:20 Amorphous Sediment Not Reportable 08/03/23 05:20 Urine Bacteria 1+ /hpf (NONE) H 08/03/23 05:20 Urine Opiates Screen Positive ng/mL (Negative) H 08/03/23 05:20 Ur Barbiturates Screen Negative ng/mL (Negative) 08/03/23 05:20 Ur Phencyclidine Scrn Negative ng/mL (Negative) 08/03/23 05:20 Ur Amphetamines Screen Negative ng/mL (Negative) 08/03/23 05:20 U Benzodiazepines Scrn Positive ng/mL (Negative) H 08/03/23 05:20 Urine Cocaine Screen Negative ng/mL (Negative) 08/03/23 05:20 U Marijuana (THC) Screen Negative ng/mL (Negative) 08/03/23 05:20 Ethyl Alcohol < 10 mg/dL (0-10) 08/03/23 03:51 Serum Ketones Negative (Negative) 08/03/23 03:51 Other data: Echo done today LV systolic function is moderately reduced with EF of 35 to 40%. Moderate mitral regurgitation Moderate tricuspid regurgitation Moderate pulmonary hypertension IVC is dilated. No comparison studies are available. The EKG revealed Sinus rhythm with nonspecific T wave changes. Left axis deviation. Poor R wave progression. Chest x-ray revealed Borderline cardiac fluid. Increased pulmonary venous markings and interstitial densities suggestive of acute pulmonary edema A&P Assessment and plan (1) Elevated troponin: Patient's baseline troponin T was found to be elevated. Currently it seems to be trending down. EKG changes are nonspecific. Possibility of her having had a non-ST elevation myocardial infarction is a strong consideration. Hemodynamically she seems to be stable. She will be treated with IV heparin, aspirin, beta-billy, statin, nitrates and other symptomatic measures. In view of the possible lumbar puncture, it may be appropriate to hold off on the Plavix for the time being (2) Acute pulmonary edema: Her clinical features and the chest x-ray are suggestive of an acute pulmonary edema. She responded appropriately to IV Lasix. She may be treated with Lasix on a as needed basis. Most likely ischemic event might have precipitated this. I may add topical nitrates along with other medications. (3) LV dysfunction: This could be related to underlying coronary ischemia. She requires a cardiac catheterization to further evaluate the coronary status. However we would like to wait till infection is appropriately treated. (4) Benign essential hypertension with target blood pressure below 140/90: Patient may be closely monitored on telemetry. It may be appropriate to keep the systolic blood pressure between 130s to 140s. (5) Altered mental status: Etiology is unclear. She is almost back to her baseline status at this point. Management as per the primary. Qualifiers: Altered mental status type: transient alteration of awareness Qualified Code(s): R40.4 - Transient alteration of awareness (6) Severe headache: As mentioned above (7) Leukocytosis: Currently undergoing workup. This could be multifactorial Qualifiers: Leukocytosis type: other Qualified Code(s): D72.828 - Other elevated white blood cell count Plan Other problems are History of migrainous headache History of shingles involving the cervical region Hidradenitis suppurativa History of smoking abuse and alcohol abuse Based on the patient's clinical progress, further recommendations will be made. Thank you for the opportunity to evaluate this patient and make these recommendations Discussed with Dr. Nichols. It was decided to go ahead and start the patient on Plavix since we may not be doing the lumbar puncture. Consult Attestations 2 Medical Necessity Statement: Patient requires continued hospital stay for close monitoring and further management Coding Level of Care Code 15716 Diagnoses Elevated troponin R79.89 Acute pulmonary edema J81.0 LV dysfunction I51.9 Benign essential hypertension with target blood pressure below 140/90 I10 Transient alteration of awareness R40.4 Altered mental status type: transient alteration of awareness Severe headache R51.9 Other elevated white blood cell (WBC) count D72.828 Leukocytosis type: other
[2023-08-03] MEDS: nitroglycerin 1 gm/inch oint Pkt 1 INCH TOPICAL ×2 (17:24→22:55)
[2023-08-03 18:34] LABS: NT Pro B Type Natriuretic Pept 2671 pg/mL (0-125)
[2023-08-03 18:57] LABS: Partial Thromboplastin Time 26.6 SECONDS (23.9-36.7)
[2023-08-03] MEDS: clopidogrel 300 mg Tablet PO (19:58)
[2023-08-03] MEDS: acetaminophen 325 mg Tablet 650 MG PO (19:58)
[2023-08-03] MEDS: atorvastatin 40 mg Tablet PO (21:38)
[2023-08-03] MEDS: meropenem 2,000 MG in sodium chloride 0.9% (100 ml) 100 ML 100 MG IV (21:40)
[2023-08-03] MEDS: vancomycin 1,250 MG/250 ML PIGGYBACK 250 MG IV (22:54)
[2023-08-04] VITALS (40 sets, daily range): BP systolic 93–135; BP diastolic 52–92; PULSE 83–114; RESP 0–36; TEMP 36.7–37.1; O2SAT 89–99
[2023-08-04 02:31] LABS: Partial Thromboplastin Time 40.4 SECONDS (23.9-36.7)
[2023-08-04] MEDS: pantoprazole 40 mg SDV IVP (03:46)
[2023-08-04 04:05] LABS: Basophils # 0.1 10^3/uL (0.0-0.1); Basophils % 0.7 %; Eosinophils # 0.2 10^3/uL (0.0-0.8); Eosinophils % 1.8 %; Lymphocytes # 2.6 10^3/uL (0.8-4.8); Lymphocytes % 19.1 %; Mean Corpuscular HGB Conc 33.1 g/dL (30-55); Mean Corpuscular Hemoglobin 32.6 pg (27-33); Mean Corpuscular Volume 98.5 fl (85-98); Mean Platelet Volume 10.3 fL (7.4-10.4); Monocytes # 1.2 10^3/uL (0.2-0.9); Monocytes % 8.6 %; Neutrophils # 9.26 10^3/uL (1.8-7.7); Nucleated Red Blood Cells % 0 %; Platelet Count 240 10^3/cmm (157-399); Red Blood Count 3.25 10^6/uL (3.85-5.65); Red Cell Distribution Width 12.7 % (12.1-15.1); White Blood Count 13.43 10^3/uL (3.29-11.43)
[2023-08-04 04:21] LABS: Alanine Aminotransferase 67 U/L (0-33); Albumin Level 3.5 g/dL (3.5-5.2); Alkaline Phosphatase 109 U/L (35-105); Anion Gap 16.7 (5-19); Aspartate Amino Transferase 52 U/L (0-32); Blood Urea Nitrogen 14 mg/dL (6-20); Calcium 9.1 mg/dL (8.5-10.5); Carbon Dioxide 24 mmol/L (22-29); Chloride 103 mmol/L (98-107); Globulin 2.6 g/dL (1.3-4.6); Glomerular Filtration Rate 65.8 mL/min (90-130); Glucose 126 mg/dL (65-115); Osmolality Calculated 292 mOsm/kg (285-295); Potassium 3.7 mmol/L (3.5-5.1); Sodium 140 mmol/L (136-145); Total Bilirubin 0.3 mg/dL (0.15-1.2); Total Protein 6.1 g/dL (6.6-8.7)
[2023-08-04] MEDS: nitroglycerin 1 gm/inch oint Pkt 1 INCH TOPICAL ×2 (06:12→13:55)
[2023-08-04] MEDS: meropenem 2,000 MG in sodium chloride 0.9% (100 ml) 100 ML 100 MG IV ×3 (06:31→23:40)
--- NOTE | 2023-08-04 08:06 | USR_ITS ---
PROCEDURE INFORMATION: Exam: US Abdomen, Limited; Right Upper Quadrant Exam date and time: 08/04/2023 10:28 AM Age: 52 years old Clinical indication: Screening exam; Other: Biliary obstruction; Prior surgery; Surgery date: 6+ months; Surgery type: Gb removed TECHNIQUE: Imaging protocol: Real time ultrasound of the abdomen with image documentation. Limited exam focused on the right upper quadrant. COMPARISON: No relevant prior studies available. FINDINGS: Liver: There is a small volume of fluid posterior to the right lobe of the liver. The liver parenchyma is diffusely echogenic relative to the right kidney. There is no focal liver abnormality. Gallbladder: The gallbladder is absent. Biliary ducts: Common hepatic duct measures 8 mm. Common bile duct measures 8 mm. No visible filling defect. Pancreas: The visible portion of the pancreas is unremarkable. Right kidney: The right kidney is unremarkable. The right kidney measures 9 cm in length. Aorta: The visible portion of the abdominal aorta is unremarkable. Inferior vena cava: The IVC is unremarkable. Portal venous: The main portal vein demonstrates hepatopetal flow. US/US liver 23784 IMPRESSION: 1. No acute findings. 2. Mildly dilated extrahepatic bile ducts without visible filling defects. Probable reservoir effect from prior cholecystectomy. Distal common bile duct obstruction cannot be unequivocally excluded. Correlate with liver function tests. 3. Probable hepatic steatosis. 4. Right pleural effusion.
[2023-08-04] MEDS: multivitamin therapeutic Tablet 1 TAB PO (08:34)
[2023-08-04] MEDS: LORazepam 2 mg Tablet PO ×2 (08:34→20:42)
[2023-08-04] MEDS: folic acid 1 mg Tablet PO (08:34)
[2023-08-04] MEDS: thiamine 100 mg Tablet PO (08:34)
[2023-08-04] MEDS: clopidogrel 75 mg Tablet PO (08:34)
[2023-08-04] MEDS: aspirin 81 mg EC Tablet PO (08:35)
[2023-08-04] MEDS: FUROsemide 10 mg/mL SDV 2mL 20 MG IVP (08:35)
[2023-08-04] MEDS: cloNIDine 0.1 mg Tablet PO ×2 (08:36→17:46)
[2023-08-04] MEDS: acetaminophen 325 mg Tablet 650 MG PO ×2 (08:39→20:41)
[2023-08-04] MEDS: metoprolol tartrate 50 mg Tablet PO ×2 (08:47→20:42)
[2023-08-04 09:04] LABS: Partial Thromboplastin Time 42.4 SECONDS (23.9-36.7)
[2023-08-04] MEDS: heparin 5,000 unit/mL INJ 1 mL IV (09:48)
--- NOTE | 2023-08-04 09:55 | PC.NURSE ---
PTT 42.4. Heparin gtt adjustments made per protocol. Bolus admin per protocol.
--- NOTE | 2023-08-04 10:25 | P.PN_ITS ---
Subjective 2 Subjective: The headache and the neck pain is improving. The white cell count is coming down. She is remaining afebrile. Still has the chest tightness/heaviness, mild intensity. The shortness of breath has improved. Oxygen saturation is within normal limits with the 2 L of oxygen by nasal cannula. Medications: Medication Review Details: Current Medications Acetaminophen (Acetaminophen 325 Mg Tablet) 650 mg PO Q6H PRN PRN Reason: Mild/Mod Pain Or Temp >/= 101 Last Admin: 08/04/23 08:39 Dose: 650 mg Aspirin (Aspirin 81 Mg Ec Tablet) 81 mg PO DAILY [facility] Last Admin: 08/04/23 08:35 Dose: 81 mg Atorvastatin Calcium (Atorvastatin 40 Mg Tablet) 40 mg PO BEDTIME [facility] Last Admin: 08/03/23 21:38 Dose: 40 mg Clonidine HCl (Clonidine 0.1 Mg Tablet) 0.1 mg PO BID [facility] Last Admin: 08/04/23 08:36 Dose: 0.1 mg Clopidogrel Bisulfate (Clopidogrel 75 Mg Tablet) 75 mg PO DAILY [facility] Last Admin: 08/04/23 08:34 Dose: 75 mg Folic Acid (Folic Acid 1 Mg Tablet) 1 mg PO DAILY [facility] Last Admin: 08/04/23 08:34 Dose: 1 mg Heparin Sodium (Porcine) (Heparin 5,000 Unit/Ml Inj 1 Ml) 0 unit IV PRN PRN; Protocol PRN Reason: Heparin weight-base protocol Last Admin: 08/04/23 09:48 Dose: 3,100 unit Heparin Sodium/Sodium Chloride (Heparin Drip) 25,000 unit in 500 mls @ 0 mls/hr IV .Q0M [facility]; Protocol Last Titration: 08/04/23 09:49 Dose: Infused Vancomycin/PEG/NADA/Lysine/Water (Vancocin) 1,250 mg in 250 mls @ 250 mls/hr IV Q18H [facility] Last Admin: 08/03/23 22:54 Dose: 250 mls/hr Acyclovir (Zovirax) 800 mg in 400 mls @ 400 mls/hr IV Q8H [facility] Last Infusion: 08/04/23 09:16 Dose: Infused Meropenem 2,000 mg/ Sodium (Chloride) 100 mls @ 100 mls/hr IV Q8H [facility] Last Infusion: 08/04/23 09:16 Dose: Infused Lorazepam (Lorazepam 2 Mg Tablet) 2 mg PO Q4H PRN; Protocol PRN Reason: WITHDRAWAL Last Admin: 08/04/23 08:34 Dose: 2 mg Lorazepam (Lorazepam 2 Mg/Ml Inj 10 Ml Mdv) 2 mg IM Q4H PRN; Protocol PRN Reason: ALCOHOL WITHDRAWAL Lorazepam (Lorazepam 2 Mg/Ml Inj 10 Ml Mdv) 2 mg IVP PRN PRN; Protocol PRN Reason: WITHDRAWAL Last Admin: 08/03/23 19:58 Dose: 2 mg Metoprolol Tartrate (Metoprolol Tartrate 50 Mg Tablet) 50 mg PO BID@0900,2100 [facility] Last Admin: 08/04/23 08:47 Dose: 50 mg Morphine Sulfate (Morphine 4 Mg/Ml Sdv 1 Ml) 2 mg IVP Q6H PRN PRN Reason: SEVERE PAIN Multivitamins Therapeutic (Multivitamin Therapeutic Tablet) 1 tab PO DAILY [facility] Last Admin: 08/04/23 08:34 Dose: 1 tab Naloxone HCl (Naloxone 0.4 Mg/Ml Sdv) 0.1 mg IVP Q2M PRN PRN Reason: OPIATERV Nitroglycerin (Nitroglycerin 1 Gm/Inch Oint Pkt) 1 inch TOPICAL Q6H [facility] Last Admin: 08/04/23 06:12 Dose: 1 inch Ondansetron HCl (Ondansetron 2 Mg/Ml Sdv 2 Ml) 4 mg IVP Q8H PRN PRN Reason: vomiting, or N/V if npo Last Admin: 08/03/23 18:23 Dose: 4 mg Pantoprazole Sodium (Pantoprazole 40 Mg Sdv) 40 mg IVP Q24H [facility] Last Admin: 08/04/23 03:46 Dose: 40 mg Thiamine Mononitrate (Thiamine 100 Mg Tablet) 100 mg PO DAILY [facility] Last Admin: 08/04/23 08:34 Dose: 100 mg Tramadol HCl (Tramadol 50 Mg Tablet) 50 mg PO Q4H PRN PRN Reason: MODERATE PAIN Last Admin: 08/03/23 11:17 Dose: 50 mg Vitals/I&O/Wt Last Vital Signs Temp 98.2 F 08/03/23 19:00 Pulse 91 08/04/23 06:00 Resp 20 H 08/04/23 05:00 BP 115/81 08/04/23 08:36 Pulse Ox 94 08/04/23 05:00 O2 Del Method Nasal Cannula 08/04/23 05:00 O2 Flow Rate 6 08/03/23 17:55 08/03/23 08/04/23 08/04/23 22:59 06:59 14:59 Intake Total 1376.678 / 2650.428 145.013 / 2795.441 678.309 / 678.309 Output Total 2300 / 2500 350 / 2850 Balance -923.322 / 150.428 -204.987 / -54.559 678.309 / 678.309 Weight last 48 hrs Weight 170 lb Weight 170 lb Weight 170 lb Physical Exam 2 Narrative: GENERAL: The patient is alert and oriented times three. Not in any acute distress. HEENT: No significant pallor, icterus or lymphadenopathy.Oral cavity: There are no mucous membrane lesions. NECK: Trachea appears to be central. No masses noted. No JVD or thyromegaly appreciated. RESPIRATORY: Chest is symmetrical. No intercostals muscle retraction or any accessory muscle activation. There is no chest wall tenderness. Breath sounds are heard bilaterally. No rales or rhonchi heard. No evidence of any consolidation. BREASTS: Deferred. HEART: The heart sounds are normal. No S3 or S4. No significant murmurs. No pericardial rub ABDOMEN: No vessel pulsations or distention. No tenderness. No organomegaly appreciated. Bowel sounds are normally heard. : Deferred. RECTAL: Deferred. LYMPHATIC: No lymphadenopathy noted in the neck. EXTREMITIES: No edema or cyanosis. No clubbing. MUSCULOSKELETAL: No acute joint deformities or swelling SKIN: There are no significant rashes or ecchymosis NEUROPSYCHIATRIC: The patient is alert and oriented x3. Appears to be in a good mood. No tremors or rigidity noted. Urinary Catheter Management: Duenas: Cath Placed During This Visit: yes Reason for Continuing Indwelling Catheter: Accurate Measurement of Urinary Output in Critically Ill Patients Urinary Catheter Date of Insertion: 08/03/23 Urinary Catheter Time of Insertion: 15:33 Data 08/04/23 03:32 08/04/23 03:32 Other Labs: Laboratory Last Values WBC 13.43 10^3/uL (3.29-11.43) H 08/04/23 03:32 RBC 3.25 10^6/uL (3.85-5.65) L 08/04/23 03:32 Hgb 10.60 g/dL (11.27-16.99) L 08/04/23 03:32 Hct 32.0 % (36-47) L 08/04/23 03:32 MCV 98.5 fl (85-98) H 08/04/23 03:32 MCH 32.6 pg (27-33) 08/04/23 03:32 MCHC 33.1 g/dL (30-55) 08/04/23 03:32 RDW 12.7 % (12.1-15.1) 08/04/23 03:32 Plt Count 240 10^3/cmm (157-399) 08/04/23 03:32 MPV 10.3 fL (7.4-10.4) 08/04/23 03:32 Neut % (Auto) 69.0 % 08/04/23 03:32 Lymph % (Auto) 19.1 % 08/04/23 03:32 Gilmer % (Auto) 8.6 % 08/04/23 03:32 Eos % (Auto) 1.8 % 08/04/23 03:32 Baso % (Auto) 0.7 % 08/04/23 03:32 Neut # (Auto) 9.26 10^3/uL (1.8-7.7) H 08/04/23 03:32 Lymph # (Auto) 2.6 10^3/uL (0.8-4.8) 08/04/23 03:32 Gilmer # (Auto) 1.2 10^3/uL (0.2-0.9) H 08/04/23 03:32 Eos # (Auto) 0.2 10^3/uL (0.0-0.8) 08/04/23 03:32 Baso # (Auto) 0.1 10^3/uL (0.0-0.1) 08/04/23 03:32 Nucleated RBC % (auto) 0 % 08/04/23 03:32 Nucleated RBCs # 0.0 /100WBC 08/04/23 03:32 ESR 4 mm/hr (0-15) 08/03/23 03:51 PT 13.30 SECONDS (12.1-14.9) 08/03/23 03:51 INR 0.98 (0.8-1.2) 08/03/23 03:51 APTT 42.4 SECONDS (23.9-36.7) H 08/04/23 08:44 Specimen Type Arterial 08/03/23 14:18 Sample Site Radial, right 08/03/23 14:18 ABG pH 7.41 (7.35-7.45) 08/03/23 14:18 ABG pCO2 33.4 mmHg (35-45) L 08/03/23 14:18 ABG pO2 57.7 mmHg (80.0-100.0) L 08/03/23 14:18 ABG HCO3 21.4 mmol/L (22-26) L 08/03/23 14:18 ABG O2 Saturation 88.8 08/03/23 14:18 ABG Base Excess -2.6 mmol/L (-2.0-2.0) L 08/03/23 14:18 Fidel Test Pos 08/03/23 14:18 A-a O2 Gradient 6.7 mmHg (5-10) 08/03/23 14:18 Hematocrit 35.8 % (37-47) L 08/03/23 14:18 Hgb O2 Saturation 87.4 % (95-100) L 08/03/23 14:18 Carboxyhemoglobin 0.4 %THgb (0.4-20.1) 08/03/23 14:18 Methemoglobin 1.1 % (0.4-1.5) 08/03/23 14:18 Total Hemoglobin 11.7 g/dL (12-16) L 08/03/23 14:18 Sodium 139.0 mmol/L (131-143) 08/03/23 14:18 Potassium 4.1 mmol/L (3.5-5.0) 08/03/23 14:18 Glucose 117.0 mg/dL (70-115) H 08/03/23 14:18 Ionized Calcium 1.3 mmol/L (1.1-1.4) 08/03/23 14:18 O2 Delivery Device Oxy mask 08/03/23 14:18 O2 Liters/Min 15.0 % 08/03/23 14:18 Director Of Corporate Strategy ID Monro 08/03/23 14:18 Sodium 140 mmol/L (136-145) 08/04/23 03:32 Potassium 3.7 mmol/L (3.5-5.1) 08/04/23 03:32 Chloride 103 mmol/L (98-107) 08/04/23 03:32 Carbon Dioxide 24 mmol/L (22-29) 08/04/23 03:32 Anion Gap 16.7 (5-19) 08/04/23 03:32 BUN 14 mg/dL (6-20) 08/04/23 03:32 Creatinine 0.9 mg/dL (0.5-0.9) 08/04/23 03:32 GFR Calculation 65.8 mL/min (90-130) L 08/04/23 03:32 Glucose 126 mg/dL (65-115) H 08/04/23 03:32 Estimat Average Glucose 114 08/03/23 03:51 Hemoglobin A1c 5.6 % (4.0-6.0) 08/03/23 03:51 Calculated Osmolality 292 mOsm/kg (285-295) 08/04/23 03:32 Lactic Acid 3.0 mmol/L (0.5-2.2) H 08/03/23 03:51 Lactic Acid (Sepsis) 2.9 mmol/L (0.5-2.2) H 08/03/23 06:53 Lactate 2.1 mmol/L (0.5-2.2) 08/03/23 14:35 Calcium 9.1 mg/dL (8.5-10.5) 08/04/23 03:32 Magnesium 1.4 mg/dL (1.7-2.3) L 08/03/23 03:51 Total Bilirubin 0.3 mg/dL (0.15-1.2) 08/04/23 03:32 AST 52 U/L (0-32) H 08/04/23 03:32 ALT 67 U/L (0-33) H 08/04/23 03:32 Alkaline Phosphatase 109 U/L (35-105) H 08/04/23 03:32 Ammonia 26 umol/L (11-51) 08/03/23 03:51 Creatine Kinase 162 U/L (26-192) 08/03/23 03:51 Troponin T Baseline 354 ng/L (0-10) H* 08/03/23 03:51 Troponin T 120 Minute 351.2 ng/L (0-10) H 08/03/23 06:08 Delta Troponin T -2.8 ABS# (0-10) L 08/03/23 06:08 Troponin T Hi Sens 6Hr 264.8 ng/L (0-10) H 08/03/23 10:32 Troponin T Hi Sens 6Hr Delta -89.2 ng/L (0-12) L 08/03/23 10:32 C-Reactive Protein 6.2 mg/L (0.0-4.9) H 08/03/23 03:51 NT-Pro-B Natriuret Pep 2671 pg/mL (0-125) H 08/03/23 03:51 Total Protein 6.1 g/dL (6.6-8.7) L 08/04/23 03:32 Albumin 3.5 g/dL (3.5-5.2) 08/04/23 03:32 Globulin 2.6 g/dL (1.3-4.6) 08/04/23 03:32 Triglycerides 283 mg/dL (0-150) H 08/03/23 03:51 Cholesterol 223 mg/dL (0-200) H 08/03/23 03:51 LDL Cholesterol, Calc 101 mg/dL (50-129) 08/03/23 03:51 HDL Cholesterol 65 mg/dL (60-100) 08/03/23 03:51 LDL/HDL Ratio 1.55 RATIO (0.00-3.22) 08/03/23 03:51 Cholesterol/HDL Ratio 3.43 mg/dL (0.0-4.40) 08/03/23 03:51 Vitamin B12 1755 pg/mL (232-1245) H 08/03/23 03:51 Folate 6.8 ng/mL (4.8-37.3) 08/03/23 03:51 Procalcitonin 0.06 ng/mL (0-0.5) 08/03/23 03:51 TSH 1.26 uIU/mL (0.27-4.20) 08/03/23 03:51 Urine Color Yellow (Yellow) 08/03/23 05:20 Urine Appearance Sl hazy (CLEAR) A 08/03/23 05:20 Urine pH 6.5 (5-7) 08/03/23 05:20 Ur Specific [place] 1.015 (1.005-1.030) 08/03/23 05:20 Urine Protein 1+ (Negative) H 08/03/23 05:20 Urine Glucose (UA) Norm (Normal) 08/03/23 05:20 Urine Ketones 1+ (Negative) H 08/03/23 05:20 Urine Blood 3+ (Negative) H 08/03/23 05:20 Urine Nitrate Negative (Negative) 08/03/23 05:20 Urine Bilirubin 1+ (Negative) H 08/03/23 05:20 Urine Urobilinogen Neg mg/dL (Negative) 08/03/23 05:20 Ur Leukocyte Esterase Trace (Negative) H 08/03/23 05:20 Urine RBC 15-25 /hpf (0-2) H 08/03/23 05:20 Urine WBC 0-4 /hpf (0-5) H 08/03/23 05:20 Ur Squamous Epith Cells 15-25 /hpf (0-5) H 08/03/23 05:20 Amorphous Sediment Not Reportable 08/03/23 05:20 Urine Bacteria 1+ /hpf (NONE) H 08/03/23 05:20 Urine Opiates Screen Positive ng/mL (Negative) H 08/03/23 05:20 Ur Barbiturates Screen Negative ng/mL (Negative) 08/03/23 05:20 Ur Phencyclidine Scrn Negative ng/mL (Negative) 08/03/23 05:20 Ur Amphetamines Screen Negative ng/mL (Negative) 08/03/23 05:20 U Benzodiazepines Scrn Positive ng/mL (Negative) H 08/03/23 05:20 Urine Cocaine Screen Negative ng/mL (Negative) 08/03/23 05:20 U Marijuana (THC) Screen Negative ng/mL (Negative) 08/03/23 05:20 Ethyl Alcohol < 10 mg/dL (0-10) 08/03/23 03:51 Serum Ketones Negative (Negative) 08/03/23 03:51 A&P Assessment and plan (1) Elevated troponin: Patient's baseline troponin T was found to be elevated. Currently it seems to be trending down. EKG changes are nonspecific. Possibility of her having had a non-ST elevation myocardial infarction is a strong consideration. Hemodynamically she seems to be stable. For further evaluation of the patient's coronary status, she requires a cardiac catheterization. (2) Acute pulmonary edema: Her clinical features and the chest x-ray are suggestive of an acute pulmonary edema. She responded appropriately to IV Lasix. She may be treated with Lasix on a as needed basis. Most likely ischemic event might have precipitated this. The heart failure seems to be compensated at this time. May continue on the current medications. (3) LV dysfunction: This could be related to underlying coronary ischemia. She requires a cardiac catheterization to further evaluate the coronary status. I may add losartan 25 mg p.o. now and daily, spironolactone 25 mg p.o. daily and Jardiance 10 mg p.o. daily, to the current (4) Benign essential hypertension with target blood pressure below 140/90: The dose of the clonidine may be cut down to half of 0.1 mg twice daily. Blood pressure needs to be closely monitored. (5) Altered mental status: Etiology is unclear. She is almost back to her baseline status at this point. Management as per the primary. Qualifiers: Altered mental status type: transient alteration of awareness Qualified Code(s): R40.4 - Transient alteration of awareness (6) Severe headache: Has significant improvement. Etiology? (7) Leukocytosis: White cell count is improving. It could be due to acute phase reactants. Qualifiers: Leukocytosis type: other Qualified Code(s): D72.828 - Other elevated white blood cell count Plan Other problems are Mild anemiaache History of shingles involving the cervical region Hidradenitis suppurativa History of smoking abuse and alcohol abuse Patient may benefit from a cardiac catheterization to further evaluate the coronary status and decide on further management. The risk and benefits were discussed. The risk of bleeding, hematoma, vascular injury, myocardial infarction, myocardial perforation, malignant cardiac arrhythmias ,CVA, renal failure and other concomitant complications were explained in detail. I will be discussing with Dr Rafaela Nichols about the appropriate timing of this procedure. Based on the angiogram findings, further recommendations will be made Attestations 2 Medical Necessity Statement*: Patient requires continued hospital stay for close monitoring and further management Coding Level of Care Code 96374 Diagnoses Elevated troponin R79.89 Acute pulmonary edema J81.0 LV dysfunction I51.9 Benign essential hypertension with target blood pressure below 140/90 I10 Transient alteration of awareness R40.4 Altered mental status type: transient alteration of awareness Severe headache R51.9 Other elevated white blood cell (WBC) count D72.828 Leukocytosis type: other
--- NOTE | 2023-08-04 11:40 | XACV_ITS ---
Exam Room: 2 Ht: 170 cm Wt: 77 kg BSA: 1.92 m2 Gender: Female : 1970 Any Known Allergies: Penicillins Exam Priority: Routine Procedure(s): Procedure Description: Diagnostic procedure Procedure Description: Left Heart Catheterization Procedure Description: Left ventriculography Procedure Description: Miscellaneous Procedure Description: ACT Procedure Description: Coronary Angiography Flako MARC; Diagnostic Cath Status: Urgent Diagnostic Findings * The left main is a short medium caliber vessel with no significant stenotic lesions. * The left anterior descending artery is a medium caliber vessel which appears to wraparound LV apex. No significant stenotic lesions were noted. Minimal intimal irregularities are noted in the mid and distal segment. The diagonal branches also were found to have no significant lesions. * The left circumflex artery is a medium caliber vessel which appears to bifurcate at the mid segment and was found to have no significant stenotic lesions. * The intermedius artery is a high obtuse marginal branch of medium caliber with no significant stenotic lesions. * The right coronary artery is a medium caliber dominant vessel with no significant stenotic lesions. Conclusions 1. This 50-year-old white female with multiple risk factors for coronary disease and family history for premature heart disease, presents with complaints of headache, chest pain and shortness of breath. She had features of acute pulmonary edema and echocardiographic evidence of moderately depressed LV ejection fraction. EKG showed diffuse nonspecific T changes. The baseline troponin T was elevated in the 400 range. She continued to have chest tightness/heaviness in the hospital. For further evaluation of her coronary status, a cardiac catheterization was recommended. Patient underwent left heart catheterization with left and right coronary angiogram and LV angiogram today. The findings are as follows. 2. 1. No significant obstructive coronary artery disease. #2 diffuse hypokinesia of the basal and mid segments of the left ventricule with normal contractility of the apex. #3 LV ejection fraction of 35 to 40%. LVEDP 28 mmHg. The features may suggest a variant of Takotsubo syndrome. Diagnostic RX Recommendation: medical therapy and/or counseling LV EDP: 28 mmHg Ventriculography Ejection Fraction: 40.0 % Left Ventriculography Findings: * LV gram was performed the RESTREPO projection. The basal and mid segments of the left ventricle were found to be moderately hypokinetic. The apical segments are found to be malia well. No filling defects are noted. No significant mitral valve prolapse or mitral regurgitation. The LVEDP was 28 mmHg. The LV ejection fraction was around 35 to 40%. Pressures Phase:Rest AO : 116 / 82 ( 98 ) @ 12:42:00 PM 105 / 84 ( 94 ) @ 12:43:00 PM 108 / 86 ( 97 ) @ 12:44:00 PM 110 / 89 ( 100 ) @ 12:49:00 PM 132 / 83 ( 106 ) @ 12:54:00 PM 134 / 82 ( 103 ) @ 12:54:00 PM LV : 133 / 5 / 28 @ 12:53:00 PM 133 / 9 / 26 @ 12:54:00 PM 132 / 9 / 28 @ 12:54:00 PM Valves Phase:DefaultPhase AV : 3.0 @ 1:05:23 PM 3.0 @ 1:05:23 PM AV Mean Gradient: 9.0 @ 1:05:23 PM 9.0 @ 1:05:23 PM Clinical Evaluation EBL: 5mL-10mL Procedural Details Procedure Consent Obtained. Pre-Procedure Time Out. Identified patient by full name and date of as verbalized by the patient/guarantor. Does the consent match the physician's order: Yes. Accurate & Complete Informed Consent: Yes. Inpatient/Outpatient History & Physical on Chart: Yes. If H&P is completed, is and addenduem needed: No; If yes, is the addendum complete: N/A. Visualize and Verify Site with Patient/Guarantor: N/A. Relevant Radiology Images available: Yes. Pre-op teaching completed and patient verbalized understanding. The risks, benefits, and alternatives of sedation and/or procedure were discussed by physician. The patient agrees to continue. Procedure started. Physician arrived. [facility] Clinical Fraility Score: 4: Vulnerable. Steam Bone Press Tender Indications: Cardiomyopathy. Chest Pain Symptom Assessment: Atypical Angina. Correct patient, site and procedure confirmed by cath team. Current diagnosis: NSTEMI. PERRLA. Strong, equal hand soap worker bilaterally. Lungs clear x 5 lobes. IV Site on Arrival: 18 gauge in the right anticubital. IV Fluids: 0.9% NaCl at KVO. 0 mL infused prior to medical lab scientist. Pre Procedural Pulses: right radial was 3+. Oxygen started at 2liters/min via nasal canula. right groin was prepped with chloroprep then draped in the usual sterile fashion. right radial was prepped with chloroprep then draped in the usual sterile fashion. Baseline sample Acquired. HR: 89 BPM. Physician scrubbed in. Immediate Pre-Procedure Time Out. Correct Patient: Yes; Correct Procedure: Yes; Correct Site: Yes; Correct Patient Position: Yes; Correct Supplies: Yes; Dried Flammable Prep: Yes; Blood Products Available: N/A;. Lidocaine 1% infiltrated to the right radial. Arterial access obtained. A 5 maldivian Mak catheter in over wire. ACT drawn. Results 149 seconds. Therapeutic limits - pre-heparin administration 90-150 seconds and monitoring heparin during a vascular procedure >250 seconds. Multiple views taken of left coronary artery. Catheter removed over the exchange wire. A 5 maldivian JR4 catheter in over wire. Multiple views taken of right coronary artery. Catheter removed over the exchange wire. A 5 maldivian Angled Pig catheter in over wire. EDP Sample taken: LV 133/5,28; HR: 84 BPM; SpO2: 88%. LV gram performed in RESTREPO @ 10 mL/second for a total of 30 mL. EDP Sample taken: LV 133/9,26; HR: 79 BPM; SpO2: 89%. Pullback taken: LV 132/9,28; AO 132/83(106); Mean: 9mmHg, Peak to Peak: 3mmHg, SEP: 20sec/min; HR: 84 BPM; SpO2: 89%. Catheter removed over the exchange wire. A TR Band was successful obtaining hemostatsis at the Right Radial artery insertion site. Post Procedure: Pulses reassessed and unchanged. PERRLA. Strong, equal hand soap worker bilaterally. No VTE prophylaxis required. Medication's Wasted: Nitro = 49.8 mg. Medication's Wasted: Lidocaine 1% = 10 mL. Medication's Wasted: Other = Fentanyl 75 mcg. Medication's Wasted: Heparin = 3000 units. Total IV fluids: 45 mL. Vital chart was stopped. Complications: None. Estimated blood loss: 5mL-10mL. Responsiveness - Normal response to verbal stimuli; alert and oriented, PERRLA. Airway - Unaffected, no intervention required; spontaneous ventilation. Circulation: W/N/L, pulses unchanged. Nausea/Vomiting: No. Procedure completed. Patient transferred by bed to ICU. Access Site Site: Right Radial artery Sheath Size: 6 Fr Hemostasis Method: TR Band Hemostasis Success: Successful Procedure Medications Start: 12:23 PM Stop: 12:23 PM Medication: Versed 1 mg and Fentanyl 25 mcg Amount: 1 Route: I.V. Start: 12:26 PM Stop: 12:26 PM Medication: Benadryl Amount: 50 mg Route: I.V. Start: 12:36 PM Stop: 12:36 PM Medication: Versed Amount: 1 mg Route: I.V. Start: 12:39 PM Stop: 12:39 PM Medication: Nitrogylcerin Amount: 200 mcg Route: I.A. Start: 12:39 PM Stop: 12:39 PM Medication: Verapamil Amount: 5 mg Route: I.A. Start: 12:47 PM Stop: 12:47 PM Medication: Heparin Amount: 3000 units Route: I.V. I, the attending physician, have reviewed and verified all procedure medications. Yes, all medications given per verbal order History/Risk Factors Hypertension: No Dyslipidemia: No Peripheral Arterial Disease (PAD): No Myocardial Infarction (KS): No Obesity: No Renal Disease: No Tobacco Use: Current/Recent(w/in 1 year) Prior Interventions PCI: No CABG: No Valve Surgery: No Report Signatures Finalized by Dr Omar Arriola MD [facility] on 08/04/2023 03:20 PM
--- NOTE | 2023-08-04 12:17 | PC.NURSE ---
PT off ICU unit to chemical processing laborer.
--- NOTE | 2023-08-04 12:22 | W.PM.OPSUD ---
Surgery/Procedure H&P Update DATE OF PROCEDURE: August 04, 2023 DATE H&P PERFORMED: 08/03/23 H&P UPDATE INFORMATION: I have reviewed H&P completed within last 30 days, I have examined patient prior to procedure and No changes to prior documentation PREOP DIAGNOSIS: ASHD/ Cardiomyopathy PRIMARY INDICATION FOR PROCEDURE: NSTEMI/pulmonary edema/cardiomyopathy PLANNED PROCEDURE: Left heart catheterization with left and right coronary angiogram, LV angiogram and possible PCI PATIENT REASSESSED PRIOR TO SEDATION, WITH NO CHANGE NOTED: Yes PHYSICAL EXAM: alert, oriented x 3, clear to auscultation bilaterally and regular rate & rhythm AIRWAY EVAL/ANESTHESIA PLAN: normal airway, see other exam findings, ASA III, Monitored Anesthesia, Local Anesthesia, Risks, benefits & alternatives of sedation and/or procedure discussed and Patient agrees to continue as planned
[2023-08-04] MEDS: spironolactone 25 mg Tablet PO (13:54)
[2023-08-04] MEDS: TRAMadol 50 mg Tablet PO (14:06)
--- NOTE | 2023-08-04 15:57 | PC.NURSE ---
Report called to [facility]. Report given to NOLAN Paris. All questions answered.
--- NOTE | 2023-08-04 16:36 | PC.NURSE ---
Pt transferred to room 253-1. All belongings gathered by . Further updates about antibicotcs given to NOLAN Paris.
[2023-08-04 17:17] LABS: Adenovirus Not Detected (NOT DETECT); Chlamydia Pneumoniae Not Detected (NOT DETECT); Coronavirus 229E,HKU1,NL63,OC4 Not Detected (NOT DETECT); Human Metapneumovirus Not Detected (NOT DETECT); Human Rhinovirus/Enterovirus Not Detected (NOT DETECT); Influenza A Not Detected (NOT DETECT); Influenza A H1 Not Detected (NOT DETECT); Influenza A H1-2009 Not Detected (NOT DETECT); Influenza A H3 Not Detected (NOT DETECT); Influenza B Not Detected (NOT DETECT); Mycoplasma Pneumoniae Not Detected (NOT DETECT); Parainfluenza Virus Type 1 Not Detected (NOT DETECT); Parainfluenza Virus Type 2 Not Detected (NOT DETECT); Parainfluenza Virus Type 3 Not Detected (NOT DETECT); Parainfluenza Virus Type 4 Not Detected (NOT DETECT); Respiratory Syncytial Virus A Not Detected (NOT DETECT); Respiratory Syncytial Virus B Not Detected (NOT DETECT); SARS-COV-2 Not Detected (NOT DETECT)
--- NOTE | 2023-08-04 17:21 | P.PN_ITS ---
Subjective 2 Subjective: Echocardiogram returned with LV systolic function reduced with EF of 35 to 40%. There was noted to be anteroseptal hypokinesia. Moderate pulmonary hypertension additionally noted. Patient underwent coronary angiogram today which did not show any occlusive CAD. Suspicion for Takotsubo cardiomyopathy. She remains afebrile, hemodynamically stable. Additional Lasix 20 mg IV today. Oxygen requirements down to 4 L/min from 50 L/min yesterday afternoon when she had pulmonary edema. headcahe is better today but still persisting. Medications: Reviewed: Yes Medication Review Details: Current Medications Acetaminophen (Acetaminophen 325 Mg Tablet) 650 mg PO Q6H PRN PRN Reason: Mild/Mod Pain Or Temp >/= 101 Last Admin: 08/04/23 08:39 Dose: 650 mg Aspirin (Aspirin 81 Mg Ec Tablet) 81 mg PO DAILY [facility] Last Admin: 08/04/23 08:35 Dose: 81 mg Atorvastatin Calcium (Atorvastatin 40 Mg Tablet) 40 mg PO BEDTIME [facility] Last Admin: 08/03/23 21:38 Dose: 40 mg Clonidine HCl (Clonidine 0.1 Mg Tablet) 0.1 mg PO BID [facility] Last Admin: 08/04/23 08:36 Dose: 0.1 mg Clopidogrel Bisulfate (Clopidogrel 75 Mg Tablet) 75 mg PO DAILY [facility] Last Admin: 08/04/23 08:34 Dose: 75 mg Folic Acid (Folic Acid 1 Mg Tablet) 1 mg PO DAILY [facility] Last Admin: 08/04/23 08:34 Dose: 1 mg Heparin Sodium (Porcine) (Heparin 5,000 Unit/Ml Inj 1 Ml) 0 unit IV PRN PRN; Protocol PRN Reason: Heparin weight-base protocol Last Admin: 08/04/23 09:48 Dose: 3,100 unit Heparin Sodium/Sodium Chloride (Heparin Drip) 25,000 unit in 500 mls @ 0 mls/hr IV .Q0M [facility]; Protocol Last Titration: 08/04/23 09:49 Dose: Infused Vancomycin/PEG/NADA/Lysine/Water (Vancocin) 1,250 mg in 250 mls @ 250 mls/hr IV Q18H [facility] Last Admin: 08/03/23 22:54 Dose: 250 mls/hr Acyclovir (Zovirax) 800 mg in 400 mls @ 400 mls/hr IV Q8H [facility] Last Infusion: 08/04/23 09:16 Dose: Infused Meropenem 2,000 mg/ Sodium (Chloride) 100 mls @ 100 mls/hr IV Q8H [facility] Last Infusion: 08/04/23 09:16 Dose: Infused Lorazepam (Lorazepam 2 Mg Tablet) 2 mg PO Q4H PRN; Protocol PRN Reason: WITHDRAWAL Last Admin: 08/04/23 08:34 Dose: 2 mg Lorazepam (Lorazepam 2 Mg/Ml Inj 10 Ml Mdv) 2 mg IM Q4H PRN; Protocol PRN Reason: ALCOHOL WITHDRAWAL Lorazepam (Lorazepam 2 Mg/Ml Inj 10 Ml Mdv) 2 mg IVP PRN PRN; Protocol PRN Reason: WITHDRAWAL Last Admin: 08/03/23 19:58 Dose: 2 mg Metoprolol Tartrate (Metoprolol Tartrate 50 Mg Tablet) 50 mg PO BID@0900,2100 [facility] Last Admin: 08/04/23 08:47 Dose: 50 mg Morphine Sulfate (Morphine 4 Mg/Ml Sdv 1 Ml) 2 mg IVP Q6H PRN PRN Reason: SEVERE PAIN Multivitamins Therapeutic (Multivitamin Therapeutic Tablet) 1 tab PO DAILY [facility] Last Admin: 08/04/23 08:34 Dose: 1 tab Naloxone HCl (Naloxone 0.4 Mg/Ml Sdv) 0.1 mg IVP Q2M PRN PRN Reason: OPIATERV Nitroglycerin (Nitroglycerin 1 Gm/Inch Oint Pkt) 1 inch TOPICAL Q6H [facility] Last Admin: 08/04/23 06:12 Dose: 1 inch Ondansetron HCl (Ondansetron 2 Mg/Ml Sdv 2 Ml) 4 mg IVP Q8H PRN PRN Reason: vomiting, or N/V if npo Last Admin: 08/03/23 18:23 Dose: 4 mg Pantoprazole Sodium (Pantoprazole 40 Mg Sdv) 40 mg IVP Q24H [facility] Last Admin: 08/04/23 03:46 Dose: 40 mg Thiamine Mononitrate (Thiamine 100 Mg Tablet) 100 mg PO DAILY [facility] Last Admin: 08/04/23 08:34 Dose: 100 mg Tramadol HCl (Tramadol 50 Mg Tablet) 50 mg PO Q4H PRN PRN Reason: MODERATE PAIN Last Admin: 08/03/23 11:17 Dose: 50 mg Vitals/I&O/Wt Last Vital Signs Temp 98.7 F 08/04/23 13:30 Pulse 96 08/04/23 15:56 Resp 24 H 08/04/23 15:56 BP 125/79 08/04/23 15:56 Pulse Ox 95 08/04/23 15:45 O2 Del Method Nasal Cannula 08/04/23 15:45 O2 Flow Rate 4 08/04/23 15:45 08/04/23 08/04/23 08/04/23 06:59 14:59 22:59 Intake Total 145.013 / 2795.441 708.309 / 708.309 500 / 1208.309 Output Total 350 / 2850 800 / 800 Balance -204.987 / -54.559 -91.691 / -91.691 500 / 408.309 Weight last 48 hrs Weight 77.111 kg Weight 77.111 kg Weight 77.111 kg Physical Exam 2 Narrative: General: No acute distress, AO x3 HEENT: PERRLA, pupils bilaterally equal and reactive, pallors not present Chest: Normal vesicular breath sounds, no added sounds, equal good air entry bilaterally CVS: S1-S2 regular, no murmurs, no tachycardia, no gallops, no rubs Abdomen: Soft, nontender, no organomegaly, bowel sounds present Neuro: No focal deficits, no facial deformity, AO x3, power 5/5 in all limbs Urinary Catheter Management: Duenas: Cath Placed During This Visit: yes Reason for Continuing Indwelling Catheter: Accurate Measurement of Urinary Output in Critically Ill Patients Urinary Catheter Date of Insertion: 08/03/23 Urinary Catheter Time of Insertion: 15:33 Data 08/04/23 03:32 08/04/23 03:32 Micro: Microbiology 08/03/23 03:27 Blood Culture - Preliminary Blood No growth to date. 08/03/23 03:27 Blood Culture - Preliminary Blood No growth to date. 08/04/23 03:32 Cryptococcal Antigen (Serum) - Final Cryptococcal AG Result: NEGATIVE FOR CRYPTOCOCCAL ANTIGEN Blood A&P Assessment and plan (1) Transient ischemic attack: (2) Elevated lactic acid level: (3) Leukocytosis: Qualifiers: Leukocytosis type: other Qualified Code(s): D72.828 - Other elevated white blood cell count (4) Seizure: Plan # Transient ischemic attack -She does have a history of atrial fibrillation, status post ablation -Does have hypertension -Currently alert oriented x 3, following all commands no focal weakness denies stroke scale 0 -Seen at [place] [place] ER, had stroke evaluation, ct head, cta head and neck within normal limits i was told -er provider spoke to neurology at [facility], not candidate for tpa, symptoms had resolved in er #possible Seizure - unclear overall, per extra history by patient has had several weeks of intermittent disorientation, AMS at home which has been transient. No tonic clonic movements noted, it appears she was told in [facility] ER she may have post ictal state # Takosubo cardiomyopathy reduced EF as noted above clear coronaries on cath today dc heparin drip and plavix started on aldactone, losartan continue ASA 81 # Acute sytsolic CHF Lasix 20mg iv today # acute hypoxia related to CHF CXR with pulm edema improved after administration of lasix down to 4lpm today Lasix 20mg iv today D dimer from ER at [facility] at < 0.27, low probability of PE # leukocytosis , elevated lactate, unclear etiology currently given neck pain. headache, photophobia and nausea concern for meningitis for which she is on empiric rx with meropenem, vancomycin and ACV Alternate possibility is that of complex migraine vs alcohol withdrawal LP deferred for now as patient was on heparin and plavix, cardiac evaluation of more immediate concern # Hidradenitis suppurativa -On Otezla, currently on hold # alcohol use, currently going through withdrawal CIWA 11 this am on prn ativan # transaminitis check hepatitis panel RUQ us without any acute issues full code heparin Attestations 2 Medical Necessity Statement*: continued amdission for iv abx, s/p cath today , need for iv ddiuresis Coding Level of Care Code Acute Code for Chg Fwd High MDM includes number and complexity of problems actively addressed during encounter, amount and/or complexity of data reviewed/ordered and described risk of complication, morbidity or mortality of management as documented Diagnoses Transient ischemic attack G45.9 Elevated lactic acid level R79.89 Other elevated white blood cell (WBC) count D72.828 Leukocytosis type: other Seizure R56.9
[2023-08-04] MEDS: vancomycin 1,250 MG/250 ML PIGGYBACK 250 MG IV (17:46)
[2023-08-04] MEDS: heparin 5,000 unit/mL INJ 1 mL 5000 UNIT SUBCUT (18:07)
[2023-08-04] MEDS: atorvastatin 40 mg Tablet PO (20:42)
[2023-08-05] VITALS (9 sets, daily range): BP systolic 99–105; BP diastolic 59–72; PULSE 87–101; RESP 16–18; TEMP 36.8–37.3; O2SAT 91–99; BMI 25.5
[2023-08-05] MEDS: pantoprazole 40 mg SDV IVP (05:25)
[2023-08-05] MEDS: heparin 5,000 unit/mL INJ 1 mL 5000 UNIT SUBCUT ×2 (05:59→17:39)
[2023-08-05 06:04] LABS: Basophils # 0.1 10^3/uL (0.0-0.1); Basophils % 0.7 %; Eosinophils # 0.3 10^3/uL (0.0-0.8); Eosinophils % 2.6 %; Hematocrit 31.2 % (36-47); Lymphocytes # 2.6 10^3/uL (0.8-4.8); Lymphocytes % 25.4 %; Mean Corpuscular HGB Conc 32.4 g/dL (30-55); Mean Corpuscular Hemoglobin 32.4 pg (27-33); Mean Platelet Volume 10.6 fL (7.4-10.4); Monocytes # 1.1 10^3/uL (0.2-0.9); Monocytes % 10.4 %; Neutrophils # 6.13 10^3/uL (1.8-7.7); Neutrophils % 60.1 %; Nucleated Red Blood Cells % 0 %; Platelet Count 189 10^3/cmm (157-399); Red Blood Count 3.12 10^6/uL (3.85-5.65); Red Cell Distribution Width 12.7 % (12.1-15.1); White Blood Count 10.19 10^3/uL (3.29-11.43)
[2023-08-05 06:20] LABS: Alanine Aminotransferase 40 U/L (0-33); Albumin Level 3.3 g/dL (3.5-5.2); Alkaline Phosphatase 98 U/L (35-105); Anion Gap 13.4 (5-19); Aspartate Amino Transferase 22 U/L (0-32); Blood Urea Nitrogen 12 mg/dL (6-20); Calcium 8.8 mg/dL (8.5-10.5); Carbon Dioxide 24 mmol/L (22-29); Chloride 107 mmol/L (98-107); Globulin 2.6 g/dL (1.3-4.6); Glomerular Filtration Rate 75.3 mL/min (90-130); Glucose 110 mg/dL (65-115); Osmolality Calculated 292 mOsm/kg (285-295); Potassium 3.4 mmol/L (3.5-5.1); Sodium 141 mmol/L (136-145); Total Bilirubin 0.4 mg/dL (0.15-1.2); Total Protein 5.9 g/dL (6.6-8.7)
[2023-08-05 06:43] LABS: Hepatitis A Antibody IgM Non-Reactive (Nonreactive); Hepatitis B Core AB, Total Non-Reactive (Nonreactive); Hepatitis B Surface AB < 3.5 (11.5-1000); Hepatitis B Surface Antigen Non-Reactive (Nonreactive); Hepatitis C Virus Antibody Non-Reactive (Nonreactive)
[2023-08-05] MEDS: meropenem 2,000 MG in sodium chloride 0.9% (100 ml) 100 ML 100 MG IV ×3 (07:13→23:48)
[2023-08-05] MEDS: spironolactone 25 mg Tablet PO (09:45)
[2023-08-05] MEDS: aspirin 81 mg EC Tablet PO (09:45)
[2023-08-05] MEDS: folic acid 1 mg Tablet PO (09:45)
[2023-08-05] MEDS: potassium chloride ER 20 mEq Tablet 40 MEQ PO (09:45)
[2023-08-05] MEDS: cloNIDine 0.1 mg Tablet PO (09:45)
[2023-08-05] MEDS: losartan 50 mg Tablet 25 MG PO (09:45)
[2023-08-05] MEDS: multivitamin therapeutic Tablet 1 TAB PO (09:45)
[2023-08-05] MEDS: thiamine 100 mg Tablet PO (09:45)
[2023-08-05] MEDS: metoprolol tartrate 50 mg Tablet PO ×2 (09:54→21:08)
--- NOTE | 2023-08-05 10:29 | XRR_ITS ---
PROCEDURE INFORMATION: Exam: XR Chest Exam date and time: 08/05/2023 12:53 PM Age: 52 years old Clinical indication: Shortness of breath; Patient HX: SOB; Follow up pulmonary edema TECHNIQUE: Imaging protocol: Radiologic exam of the chest. Views: 1 view. COMPARISON: CR XR chest 1V portable [id number] 08/03/2023 1:58 PM FINDINGS: Right PICC tip position unchanged. Lungs: Increased right mid and lower lung opacities. Pleural spaces: Moderate right and small left pleural effusion. No pneumothorax. Heart/Mediastinum: Heart size is unchanged. Bones/joints: No acute findings. XR/XR chest 1V portable [id number] IMPRESSION: Increased right pleural effusion and interstitial opacities.
[2023-08-05] MEDS: acetaminophen 325 mg Tablet 650 MG PO (13:14)
--- NOTE | 2023-08-05 14:11 | P.PN_ITS ---
Subjective 2 Medications: Medication Review Details: Current Medications Acetaminophen (Acetaminophen 325 Mg Tablet) 650 mg PO Q6H PRN PRN Reason: Mild/Mod Pain Or Temp >/= 101 Last Admin: 08/05/23 13:14 Dose: 650 mg Al Hydrox/Mg Hydrox/Simethicone (Mvwv-Egi-Dhwuxiabq-Violette 30 Ml Udc) 30 ml PO Q15M PRN PRN Reason: INDIGESTION Aspirin (Aspirin 81 Mg Ec Tablet) 81 mg PO DAILY [facility] Last Admin: 08/05/23 09:45 Dose: 81 mg Atorvastatin Calcium (Atorvastatin 40 Mg Tablet) 40 mg PO BEDTIME [facility] Last Admin: 08/04/23 20:42 Dose: 40 mg Atropine Sulfate (Atropine 1 Mg/Ml Sdv 1 Ml) 0.5 mg IVP PRN PRN PRN Reason: Symptomatic bradycardia Clonidine HCl (Clonidine 0.1 Mg Tablet) 0.1 mg PO BID [facility] Last Admin: 08/05/23 09:45 Dose: 0.1 mg Folic Acid (Folic Acid 1 Mg Tablet) 1 mg PO DAILY [facility] Last Admin: 08/05/23 09:45 Dose: 1 mg Furosemide (Furosemide 10 Mg/Ml Sdv 4ml) 40 mg IVP ONCE ONE Stop: 08/05/23 14:06 Heparin Sodium (Porcine) (Heparin 5,000 Unit/Ml Inj 1 Ml) 5,000 unit SUBCUT Q12H [facility] Last Admin: 08/05/23 05:59 Dose: 5,000 unit Meropenem 2,000 mg/ Sodium (Chloride) 100 mls @ 100 mls/hr IV Q8H [facility] Last Infusion: 08/05/23 08:21 Dose: Infused Lorazepam (Lorazepam 2 Mg Tablet) 2 mg PO Q4H PRN; Protocol PRN Reason: WITHDRAWAL Last Admin: 08/04/23 20:42 Dose: 2 mg Lorazepam (Lorazepam 2 Mg/Ml Inj 10 Ml Mdv) 2 mg IM Q4H PRN; Protocol PRN Reason: ALCOHOL WITHDRAWAL Lorazepam (Lorazepam 2 Mg/Ml Inj 10 Ml Mdv) 2 mg IVP PRN PRN; Protocol PRN Reason: WITHDRAWAL Last Admin: 08/03/23 19:58 Dose: 2 mg Losartan Potassium (Losartan 50 Mg Tablet) 25 mg PO DAILY [facility] Last Admin: 08/05/23 09:45 Dose: 25 mg Magnesium Hydroxide (Magnesium Hydroxide 30 Ml Udc) 30 ml PO DAILY PRN PRN Reason: CONSTIPATION Metoprolol Tartrate (Metoprolol Tartrate 50 Mg Tablet) 50 mg PO BID@0900,2100 [facility] Last Admin: 08/05/23 09:54 Dose: 50 mg Morphine Sulfate (Morphine 4 Mg/Ml Sdv 1 Ml) 2 mg IVP Q6H PRN PRN Reason: SEVERE PAIN Multivitamins Therapeutic (Multivitamin Therapeutic Tablet) 1 tab PO DAILY [facility] Last Admin: 08/05/23 09:45 Dose: 1 tab Naloxone HCl (Naloxone 0.4 Mg/Ml Sdv) 0.1 mg IVP Q2M PRN PRN Reason: OPIATERV Nitroglycerin (Nitroglycerin 0.4 Mg Sublingual Tablet) 0.4 mg SUBLINGUAL Q5M PRN PRN Reason: CHEST PAIN Ondansetron HCl (Ondansetron 2 Mg/Ml Sdv 2 Ml) 4 mg IVP Q8H PRN PRN Reason: vomiting, or N/V if npo Last Admin: 08/03/23 18:23 Dose: 4 mg Pantoprazole Sodium (Pantoprazole 40 Mg Sdv) 40 mg IVP Q24H [facility] Last Admin: 08/05/23 05:25 Dose: 40 mg Spironolactone (Spironolactone 25 Mg Tablet) 25 mg PO DAILY [facility] Last Admin: 08/05/23 09:45 Dose: 25 mg Thiamine Mononitrate (Thiamine 100 Mg Tablet) 100 mg PO DAILY [facility] Last Admin: 08/05/23 09:45 Dose: 100 mg Tramadol HCl (Tramadol 50 Mg Tablet) 50 mg PO Q4H PRN PRN Reason: MODERATE PAIN Last Admin: 08/04/23 14:06 Dose: 50 mg Valacyclovir HCl (Valacyclovir 1,000 Mg Tablet) 1,000 mg PO BID [facility] Vitals/I&O/Wt Last Vital Signs Temp 98.8 F 08/05/23 12:00 Pulse 101 H 08/05/23 12:00 Resp 16 08/05/23 12:00 BP 99/65 08/05/23 12:00 Pulse Ox 99 08/05/23 12:00 O2 Del Method Nasal Cannula 08/05/23 07:57 O2 Flow Rate 4 08/04/23 21:00 08/04/23 08/05/23 08/05/23 22:59 06:59 14:59 Intake Total 750 / 1458.309 500 / 1958.309 500 / 500 Output Total 750 / 1550 Balance 0 / -91.691 500 / 408.309 500 / 500 Weight last 48 hrs Weight 163 lb 4.8 oz Weight 170 lb Physical Exam 2 Narrative: GENERAL: The patient is alert and oriented times three. Not in any acute distress. HEENT: No significant pallor, icterus or lymphadenopathy.Oral cavity: There are no mucous membrane lesions. NECK: Trachea appears to be central. No masses noted. No JVD or thyromegaly appreciated. RESPIRATORY: Chest is symmetrical. No intercostals muscle retraction or any accessory muscle activation. There is no chest wall tenderness. Breath sounds are heard bilaterally. No rales or rhonchi heard. No evidence of any consolidation. BREASTS: Deferred. HEART: The heart sounds are normal. No S3 or S4. No significant murmurs. No pericardial rub ABDOMEN: No vessel pulsations or distention. No tenderness. No organomegaly appreciated. Bowel sounds are normally heard. : Deferred. RECTAL: Deferred. LYMPHATIC: No lymphadenopathy noted in the neck. EXTREMITIES: No edema or cyanosis. No clubbing. MUSCULOSKELETAL: No acute joint deformities or swelling SKIN: There are no significant rashes or ecchymosis NEUROPSYCHIATRIC: The patient is alert and oriented x3. Appears to be in a good mood. No tremors or rigidity noted. Urinary Catheter Management: Duenas: Cath Placed During This Visit: yes, but has since been removed by the nurse Reason for Continuing Indwelling Catheter: Decision to DC Catheter Urinary Catheter Date of Insertion: 08/03/23 Urinary Catheter Time of Insertion: 15:33 Date Urinary Catheter Removed: 08/05/23 Time Urinary Catheter Discontinued: 12:30 Data 08/05/23 05:35 08/05/23 05:35 Other Labs: Laboratory Last Values WBC 10.19 10^3/uL (3.29-11.43) 08/05/23 05:35 RBC 3.12 10^6/uL (3.85-5.65) L 08/05/23 05:35 Hgb 10.10 g/dL (11.27-16.99) L 08/05/23 05:35 Hct 31.2 % (36-47) L 08/05/23 05:35 MCV 100.0 fl (85-98) H 08/05/23 05:35 MCH 32.4 pg (27-33) 08/05/23 05:35 MCHC 32.4 g/dL (30-55) 08/05/23 05:35 RDW 12.7 % (12.1-15.1) 08/05/23 05:35 Plt Count 189 10^3/cmm (157-399) 08/05/23 05:35 MPV 10.6 fL (7.4-10.4) H 08/05/23 05:35 Neut % (Auto) 60.1 % 08/05/23 05:35 Lymph % (Auto) 25.4 % 08/05/23 05:35 [place] % (Auto) 10.4 % 08/05/23 05:35 Eos % (Auto) 2.6 % 08/05/23 05:35 Baso % (Auto) 0.7 % 08/05/23 05:35 Neut # (Auto) 6.13 10^3/uL (1.8-7.7) 08/05/23 05:35 Lymph # (Auto) 2.6 10^3/uL (0.8-4.8) 08/05/23 05:35 [place] # (Auto) 1.1 10^3/uL (0.2-0.9) H 08/05/23 05:35 Eos # (Auto) 0.3 10^3/uL (0.0-0.8) 08/05/23 05:35 Baso # (Auto) 0.1 10^3/uL (0.0-0.1) 08/05/23 05:35 Nucleated RBC % (auto) 0 % 08/05/23 05:35 Nucleated RBCs # 0.0 /100WBC 08/05/23 05:35 ESR 4 mm/hr (0-15) 08/03/23 03:51 PT 13.30 SECONDS (12.1-14.9) 08/03/23 03:51 INR 0.98 (0.8-1.2) 08/03/23 03:51 APTT 42.4 SECONDS (23.9-36.7) H 08/04/23 08:44 Specimen Type Arterial 08/03/23 14:18 Sample Site Radial, right 08/03/23 14:18 ABG pH 7.41 (7.35-7.45) 08/03/23 14:18 ABG pCO2 33.4 mmHg (35-45) L 08/03/23 14:18 ABG pO2 57.7 mmHg (80.0-100.0) L 08/03/23 14:18 ABG HCO3 21.4 mmol/L (22-26) L 08/03/23 14:18 ABG O2 Saturation 88.8 08/03/23 14:18 ABG Base Excess -2.6 mmol/L (-2.0-2.0) L 08/03/23 14:18 Fidel Test Pos 08/03/23 14:18 A-a O2 Gradient 6.7 mmHg (5-10) 08/03/23 14:18 Hematocrit 35.8 % (37-47) L 08/03/23 14:18 Hgb O2 Saturation 87.4 % (95-100) L 08/03/23 14:18 Carboxyhemoglobin 0.4 %THgb (0.4-20.1) 08/03/23 14:18 Methemoglobin 1.1 % (0.4-1.5) 08/03/23 14:18 Total Hemoglobin 11.7 g/dL (12-16) L 08/03/23 14:18 Sodium 139.0 mmol/L (131-143) 08/03/23 14:18 Potassium 4.1 mmol/L (3.5-5.0) 08/03/23 14:18 Glucose 117.0 mg/dL (70-115) H 08/03/23 14:18 Ionized Calcium 1.3 mmol/L (1.1-1.4) 08/03/23 14:18 O2 Delivery Device Oxy mask 08/03/23 14:18 O2 Liters/Min 15.0 % 08/03/23 14:18 Powderer ID Monro 08/03/23 14:18 Sodium 141 mmol/L (136-145) 08/05/23 05:35 Potassium 3.4 mmol/L (3.5-5.1) L 08/05/23 05:35 Chloride 107 mmol/L (98-107) 08/05/23 05:35 Carbon Dioxide 24 mmol/L (22-29) 08/05/23 05:35 Anion Gap 13.4 (5-19) 08/05/23 05:35 BUN 12 mg/dL (6-20) 08/05/23 05:35 Creatinine 0.8 mg/dL (0.5-0.9) 08/05/23 05:35 GFR Calculation 75.3 mL/min (90-130) L 08/05/23 05:35 Glucose 110 mg/dL (65-115) 08/05/23 05:35 Estimat Average Glucose 114 08/03/23 03:51 Hemoglobin A1c 5.6 % (4.0-6.0) 08/03/23 03:51 Calculated Osmolality 292 mOsm/kg (285-295) 08/05/23 05:35 Lactic Acid 3.0 mmol/L (0.5-2.2) H 08/03/23 03:51 Lactic Acid (Sepsis) 2.9 mmol/L (0.5-2.2) H 08/03/23 06:53 Lactate 2.1 mmol/L (0.5-2.2) 08/03/23 14:35 Calcium 8.8 mg/dL (8.5-10.5) 08/05/23 05:35 Magnesium 1.4 mg/dL (1.7-2.3) L 08/03/23 03:51 Total Bilirubin 0.4 mg/dL (0.15-1.2) 08/05/23 05:35 AST 22 U/L (0-32) 08/05/23 05:35 ALT 40 U/L (0-33) H 08/05/23 05:35 Alkaline Phosphatase 98 U/L (35-105) 08/05/23 05:35 Ammonia 26 umol/L (11-51) 08/03/23 03:51 Creatine Kinase 162 U/L (26-192) 08/03/23 03:51 Troponin T Baseline 354 ng/L (0-10) H* 08/03/23 03:51 Troponin T 120 Minute 351.2 ng/L (0-10) H 08/03/23 06:08 Delta Troponin T -2.8 ABS# (0-10) L 08/03/23 06:08 Troponin T Hi Sens 6Hr 264.8 ng/L (0-10) H 08/03/23 10:32 Troponin T Hi Sens 6Hr Delta -89.2 ng/L (0-12) L 08/03/23 10:32 C-Reactive Protein 6.2 mg/L (0.0-4.9) H 08/03/23 03:51 NT-Pro-B Natriuret Pep 2671 pg/mL (0-125) H 08/03/23 03:51 Total Protein 5.9 g/dL (6.6-8.7) L 08/05/23 05:35 Albumin 3.3 g/dL (3.5-5.2) L 08/05/23 05:35 Globulin 2.6 g/dL (1.3-4.6) 08/05/23 05:35 Triglycerides 283 mg/dL (0-150) H 08/03/23 03:51 Cholesterol 223 mg/dL (0-200) H 08/03/23 03:51 LDL Cholesterol, Calc 101 mg/dL (50-129) 08/03/23 03:51 HDL Cholesterol 65 mg/dL (60-100) 08/03/23 03:51 LDL/HDL Ratio 1.55 RATIO (0.00-3.22) 08/03/23 03:51 Cholesterol/HDL Ratio 3.43 mg/dL (0.0-4.40) 08/03/23 03:51 Vitamin B12 1755 pg/mL (232-1245) H 08/03/23 03:51 Folate 6.8 ng/mL (4.8-37.3) 08/03/23 03:51 Procalcitonin 0.06 ng/mL (0-0.5) 08/03/23 03:51 TSH 1.26 uIU/mL (0.27-4.20) 08/03/23 03:51 Urine Color Yellow (Yellow) 08/03/23 05:20 Urine Appearance Sl hazy (CLEAR) A 08/03/23 05:20 Urine pH 6.5 (5-7) 08/03/23 05:20 Ur Specific [place] 1.015 (1.005-1.030) 08/03/23 05:20 Urine Protein 1+ (Negative) H 08/03/23 05:20 Urine Glucose (UA) Norm (Normal) 08/03/23 05:20 Urine Ketones 1+ (Negative) H 08/03/23 05:20 Urine Blood 3+ (Negative) H 08/03/23 05:20 Urine Nitrate Negative (Negative) 08/03/23 05:20 Urine Bilirubin 1+ (Negative) H 08/03/23 05:20 Urine Urobilinogen Neg mg/dL (Negative) 08/03/23 05:20 Ur Leukocyte Esterase Trace (Negative) H 08/03/23 05:20 Urine RBC 15-25 /hpf (0-2) H 08/03/23 05:20 Urine WBC 0-4 /hpf (0-5) H 08/03/23 05:20 Ur Squamous Epith Cells 15-25 /hpf (0-5) H 08/03/23 05:20 Amorphous Sediment Not Reportable 08/03/23 05:20 Urine Bacteria 1+ /hpf (NONE) H 08/03/23 05:20 Urine Opiates Screen Positive ng/mL (Negative) H 08/03/23 05:20 Ur Barbiturates Screen Negative ng/mL (Negative) 08/03/23 05:20 Ur Phencyclidine Scrn Negative ng/mL (Negative) 08/03/23 05:20 Ur Amphetamines Screen Negative ng/mL (Negative) 08/03/23 05:20 U Benzodiazepines Scrn Positive ng/mL (Negative) H 08/03/23 05:20 Urine Cocaine Screen Negative ng/mL (Negative) 08/03/23 05:20 U Marijuana (THC) Screen Negative ng/mL (Negative) 08/03/23 05:20 Ethyl Alcohol < 10 mg/dL (0-10) 08/03/23 03:51 Serum Ketones Negative (Negative) 08/03/23 03:51 Adenovirus (PCR) Not detected (NOT DETECT) 08/04/23 15:20 C. pneumoniae DNA (PCR) Not detected (NOT DETECT) 08/04/23 15:20 Coronavirus 229E (PCR) Not detected (NOT DETECT) 08/04/23 15:20 Hepatitis A IgM Ab Non-reactive (Nonreactive) 08/05/23 05:35 Hep Bs Antigen Non-reactive (Nonreactive) 08/05/23 05:35 Hep Bs Antibody < 3.5 (11.5-1000) L 08/05/23 05:35 Hep B Core Total Ab Non-reactive (Nonreactive) 08/05/23 05:35 Hepatitis C Antibody Non-reactive (Nonreactive) 08/05/23 05:35 Human Metapneumovir PCR Not detected (NOT DETECT) 08/04/23 15:20 Influenza A (H1) PCR Not detected (NOT DETECT) 08/04/23 15:20 Influ A (H1/09) PCR Not detected (NOT DETECT) 08/04/23 15:20 Influenza A (H3) PCR Not detected (NOT DETECT) 08/04/23 15:20 Influenza Type A (PCR) Not detected (NOT DETECT) 08/04/23 15:20 Influenza Type B (PCR) Not detected (NOT DETECT) 08/04/23 15:20 M. pneumoniae (PCR) Not detected (NOT DETECT) 08/04/23 15:20 Parainfluenza 1 (PCR) Not detected (NOT DETECT) 08/04/23 15:20 Parainfluenza 2 (PCR) Not detected (NOT DETECT) 08/04/23 15:20 Parainfluenza 3 (PCR) Not detected (NOT DETECT) 08/04/23 15:20 Parainfluenza 4 (PCR) Not detected (NOT DETECT) 08/04/23 15:20 RSV Type A (PCR) Not detected (NOT DETECT) 08/04/23 15:20 RSV Type B (PCR) Not detected (NOT DETECT) 08/04/23 15:20 Entero/Rhino (PCR) Not detected (NOT DETECT) 08/04/23 15:20 SARS-CoV-2 (PCR) Not detected (NOT DETECT) 08/04/23 15:20 Micro: Microbiology 08/03/23 03:27 Blood Culture - Preliminary Blood 08/03/23 03:27 Blood Culture - Preliminary Blood 08/04/23 03:32 Cryptococcal Antigen (Serum) - Final Blood A&P Assessment and plan (1) Elevated troponin: Clinical features are consistent Takotsubo syndrome. (2) Acute pulmonary edema: Heart failure seems to be fairly compensated. (3) LV dysfunction: LV ejection fraction of LV angiogram is 35 to 40%. Will continue to optimize the heart failure medications. Today appropriate to start her on Entresto twice daily. Because of the low blood pressure, I may hold off on this for the time being. She will be seen in the clinic in a week and probably will start this medicine as an outpatient (4) Benign essential hypertension with target blood pressure below 140/90: The dose of the clonidine may be cut down to half of 0.1 mg twice daily. Blood pressure needs to be closely monitored. (5) Altered mental status: Currently resolved. Qualifiers: Altered mental status type: transient alteration of awareness Qualified Code(s): R40.4 - Transient alteration of awareness (6) Severe headache: Feeling much better. (7) Leukocytosis: Back to normal. Qualifiers: Leukocytosis type: other Qualified Code(s): D72.828 - Other elevated white blood cell count Plan Other problems are Mild anemia History of shingles involving the cervical region Hidradenitis suppurativa History of smoking abuse and alcohol abuse If the patient continues to remain stable, may be discharged home today. Patient will be seen in the office in 1 week by the nurse practitioner. Consider starting on Entresto at that time. Appoint with me in the office in 2 months Attestations 2 Medical Necessity Statement*: Disposition as per the primary Coding Level of Care Code 97889 Diagnoses Elevated troponin R79.89 Acute pulmonary edema J81.0 LV dysfunction I51.9 Benign essential hypertension with target blood pressure below 140/90 I10 Transient alteration of awareness R40.4 Altered mental status type: transient alteration of awareness Severe headache R51.9 Other elevated white blood cell (WBC) count D72.828 Leukocytosis type: other
--- NOTE | 2023-08-05 15:21 | PM.PN ---
Subjective Subjective: Headache is nearly resolved today. States she feels much better in this regard. Continues to be on supplemental O2 at 4 L/min. Overnight she was attempted to remain off of oxygen, however saturation dropped to 80%. Chest x-ray repeated this afternoon shows persistence of bilateral infiltrates and increased light pleural effusion consistent with pulmonary edema. Leukocytosis has now resolved. Denies any cough. Remains afebrile. Respiratory viral panel was negative. Medications: Reviewed: Yes Medication Review Details: Current Medications Acetaminophen (Acetaminophen 325 Mg Tablet) 650 mg PO Q6H PRN PRN Reason: Mild/Mod Pain Or Temp >/= 101 Last Admin: 08/05/23 13:14 Dose: 650 mg Al Hydrox/Mg Hydrox/Simethicone (Xvwl-Uyh-Habfweipu-Violette 30 Ml Udc) 30 ml PO Q15M PRN PRN Reason: INDIGESTION Aspirin (Aspirin 81 Mg Ec Tablet) 81 mg PO DAILY [facility] Last Admin: 08/05/23 09:45 Dose: 81 mg Atorvastatin Calcium (Atorvastatin 40 Mg Tablet) 40 mg PO BEDTIME KYLEE Last Admin: 08/04/23 20:42 Dose: 40 mg Atropine Sulfate (Atropine 1 Mg/Ml Sdv 1 Ml) 0.5 mg IVP PRN PRN PRN Reason: Symptomatic bradycardia Clonidine HCl (Clonidine 0.1 Mg Tablet) 0.1 mg PO BID [facility] Last Admin: 08/05/23 09:45 Dose: 0.1 mg Folic Acid (Folic Acid 1 Mg Tablet) 1 mg PO DAILY KYLEE Last Admin: 08/05/23 09:45 Dose: 1 mg Furosemide (Furosemide 10 Mg/Ml Sdv 4ml) 40 mg IVP ONCE ONE Stop: 08/05/23 14:06 Heparin Sodium (Porcine) (Heparin 5,000 Unit/Ml Inj 1 Ml) 5,000 unit SUBCUT Q12H KYLEE Last Admin: 08/05/23 05:59 Dose: 5,000 unit Meropenem 2,000 mg/ Sodium (Chloride) 100 mls @ 100 mls/hr IV Q8H [facility] Last Infusion: 08/05/23 08:21 Dose: Infused Lorazepam (Lorazepam 2 Mg Tablet) 2 mg PO Q4H PRN; Protocol PRN Reason: WITHDRAWAL Last Admin: 08/04/23 20:42 Dose: 2 mg Lorazepam (Lorazepam 2 Mg/Ml Inj 10 Ml Mdv) 2 mg IM Q4H PRN; Protocol PRN Reason: ALCOHOL WITHDRAWAL Lorazepam (Lorazepam 2 Mg/Ml Inj 10 Ml Mdv) 2 mg IVP PRN PRN; Protocol PRN Reason: WITHDRAWAL Last Admin: 08/03/23 19:58 Dose: 2 mg Losartan Potassium (Losartan 50 Mg Tablet) 25 mg PO DAILY [facility] Last Admin: 08/05/23 09:45 Dose: 25 mg Magnesium Hydroxide (Magnesium Hydroxide 30 Ml Udc) 30 ml PO DAILY PRN PRN Reason: CONSTIPATION Metoprolol Tartrate (Metoprolol Tartrate 50 Mg Tablet) 50 mg PO BID@0900,2100 [facility] Last Admin: 08/05/23 09:54 Dose: 50 mg Morphine Sulfate (Morphine 4 Mg/Ml Sdv 1 Ml) 2 mg IVP Q6H PRN PRN Reason: SEVERE PAIN Multivitamins Therapeutic (Multivitamin Therapeutic Tablet) 1 tab PO DAILY [facility] Last Admin: 08/05/23 09:45 Dose: 1 tab Naloxone HCl (Naloxone 0.4 Mg/Ml Sdv) 0.1 mg IVP Q2M PRN PRN Reason: OPIATERV Nitroglycerin (Nitroglycerin 0.4 Mg Sublingual Tablet) 0.4 mg SUBLINGUAL Q5M PRN PRN Reason: CHEST PAIN Ondansetron HCl (Ondansetron 2 Mg/Ml Sdv 2 Ml) 4 mg IVP Q8H PRN PRN Reason: vomiting, or N/V if npo Last Admin: 08/03/23 18:23 Dose: 4 mg Pantoprazole Sodium (Pantoprazole 40 Mg Sdv) 40 mg IVP Q24H [facility] Last Admin: 08/05/23 05:25 Dose: 40 mg Spironolactone (Spironolactone 25 Mg Tablet) 25 mg PO DAILY [facility] Last Admin: 08/05/23 09:45 Dose: 25 mg Thiamine Mononitrate (Thiamine 100 Mg Tablet) 100 mg PO DAILY [facility] Last Admin: 08/05/23 09:45 Dose: 100 mg Tramadol HCl (Tramadol 50 Mg Tablet) 50 mg PO Q4H PRN PRN Reason: MODERATE PAIN Last Admin: 08/04/23 14:06 Dose: 50 mg Valacyclovir HCl (Valacyclovir 1,000 Mg Tablet) 1,000 mg PO BID [facility] Vitals/I&O/Wt Last Vital Signs Temp 98.8 F 08/05/23 12:00 Pulse 101 H 08/05/23 12:00 Resp 16 08/05/23 12:00 BP 99/65 08/05/23 12:00 Pulse Ox 99 08/05/23 12:00 O2 Del Method Nasal Cannula 08/05/23 07:57 O2 Flow Rate 4 08/04/23 21:00 08/05/23 08/05/23 08/05/23 06:59 14:59 22:59 Intake Total 500 / 1958.309 500 / 500 Balance 500 / 408.309 500 / 500 Weight last 48 hrs Weight 74.072 kg Weight 77.111 kg Physical Exam Narrative: General: No acute distress, AO x3 HEENT: PERRLA, pupils bilaterally equal and reactive, pallors not present Chest: Normal vesicular breath sounds, no added sounds, equal good air entry bilaterally CVS: S1-S2 regular, no murmurs, no tachycardia, no gallops, no rubs Abdomen: Soft, nontender, no organomegaly, bowel sounds present Neuro: No focal deficits, no facial deformity, AO x3, power 5/5 in all limbs Urinary Catheter Management: Duenas: Cath Placed During This Visit: yes, but has since been removed by the nurse Reason for Continuing Indwelling Catheter: Decision to DC Catheter Urinary Catheter Date of Insertion: 08/03/23 Urinary Catheter Time of Insertion: 15:33 Date Urinary Catheter Removed: 08/05/23 Time Urinary Catheter Discontinued: 12:30 Data 08/05/23 05:35 08/05/23 05:35 Micro: Microbiology 08/03/23 03:27 Blood Culture - Preliminary Blood 08/03/23 03:27 Blood Culture - Preliminary Blood 08/04/23 03:32 Cryptococcal Antigen (Serum) - Final Blood A&P Assessment and plan (1) Transient ischemic attack: (2) Elevated lactic acid level: (3) Leukocytosis: Qualifiers: Leukocytosis type: other Qualified Code(s): D72.828 - Other elevated white blood cell count (4) Seizure: Plan # Transient ischemic attack -She does have a history of atrial fibrillation, status post ablation -Does have hypertension -Currently alert oriented x 3, following all commands no focal weakness denies stroke scale 0 -Seen at [facility], had stroke evaluation, ct head, cta head and neck within normal limits i was told -er provider spoke to neurology at [facility], not candidate for tpa, symptoms had resolved in er #possible Seizure - unclear overall, per extra history by patient has had several weeks of intermittent disorientation, AMS at home which has been transient. No tonic clonic movements noted, it appears she was told in [facility] ER she may have post ictal state. She has a h/o chronic alcohol use, possibly may have component of Wernicke's encephalopathy. # Takosubo cardiomyopathy reduced EF LV systolic function reduced with EF of 35 to 40%, moderate mitral regurgitation, moderate tricuspid regurgitation, moderate pulmonary hypertension. Moderate global hypokinesis, anteroseptal wall is severely hypokinetic. clear coronaries on cath performed on August 04, 2023 Heparin drip and Plavix were discontinued after this resolved. started on aldactone, losartan; will hold losartan today given her blood pressures are ranging soft with 90 systolic. Continue aldactone, currently at 25, will need to be titarted back to her home dose of 100mg daily which she takes for HS . Change clonidine point 1 mg scheduled twice daily to as needed twice daily for SBP greater than 150 systolic. continue ASA 81 mg Respiratory viral panel is negative. # Acute sytsolic CHF Reduced ejection fraction as encountered on echocardiogram. # acute hypoxia related to CHF CXR with pulm edema and right-sided pleural effusion. improved after administration of lasix, oxygen requirements are down from 15 L/min to 4 L/min currently. Lasix 40 mg IV today, thereafter start Lasix 40 mg p.o. daily. Closely monitor urine output and renal function. Patient wishes to remove Duenas catheter, this is acceptable, instructed to continue to urinate in the commode or use a hat so we can still accurately measure. D dimer from ER at [facility] at < 0.27, low probability of PE # leukocytosis , elevated lactate, unclear etiology currently Chest x-ray shows bilateral infiltrates which are appearing to be more consistent with pulmonary edema, had acutely developed on August 03, 2023. Less likely to be pneumonia. Patient has no cough, no fever. Leukocytosis has now resolved. Urine analysis not a clean-catch with 15-25 epithelial cells, 0-4 WBCs, 1+ bacteriuria. Blood culture remains negative to date given neck pain. headache, photophobia and nausea concern for meningitis for which she is on empiric rx with meropenem, vancomycin and ACV Alternate possibility is that of complex migraine vs alcohol withdrawal LP deferred for now as patient was on heparin and plavix, cardiac evaluation was of more immediate concern Potentially we could reattempt an LP now that patient is off anticoagulation and Plavix, however unlikely that lumbar puncture would be helpful after patient has been on antibiotics for 4 days at this point. Low clinical suspicion for meningitis, however without an LP unlikely to be certain. She has received a presumptive course of antibiotics for 4 days, will plan to complete 5 to 7-day course and start de-escalating antibiotics. Discontinue vancomycin. Change IV acyclovir to p.o. Valtrex. Can likely transition meropenem to oral beta-lactam's over the next 24 hours, monitor patient after these changes for 24 to 48 hours and discharge if stable. # Hidradenitis suppurativa -On Otezla and cosyntex, currently on hold # alcohol use, currently going through withdrawal CIWA 2 this am , improving on prn ativan alcohol cessation counselling provided continue thiamine 100mg daily # transaminitis negative hepatitis panel RUQ us without any acute issues full code heparin Attestations Medical Necessity Statement*: D/c vancomycin. lasix iv today. monitor renal fucntion and mentation, any change in symptoms closely Coding Level of Care Code Acute Code for g Fwd Diagnoses Transient ischemic attack G45.9 Elevated lactic acid level R79.89 Other elevated white blood cell (WBC) count D72.828 Leukocytosis type: other Seizure R56.9
[2023-08-05] MEDS: FUROsemide 10 mg/mL SDV 4mL 40 MG IVP (15:45)
[2023-08-05] MEDS: valACYclovir 1,000 mg Tablet 1000 MG PO (17:39)
[2023-08-05] MEDS: atorvastatin 40 mg Tablet PO (21:08)
[2023-08-06] VITALS: BP 101/65; PULSE 88; RESP 17; TEMP 37; O2SAT 95
[2023-08-06 04:00] VITALS: BP 106/72; PULSE 101; RESP 17; TEMP 36.9; O2SAT 91
--- NOTE | 2023-08-06 04:29 | PC.NURSE ---
Moved patient into a new room d/t prior roommate being [id number] of patient. Patient and patient's very appreciative of new room placement.
[2023-08-06 04:56] LABS: Basophils # 0.1 10^3/uL (0.0-0.1); Basophils % 0.6 %; Eosinophils # 0.4 10^3/uL (0.0-0.8); Eosinophils % 3.1 %; Hematocrit 34.3 % (36-47); Lymphocytes # 2.1 10^3/uL (0.8-4.8); Lymphocytes % 17.5 %; Mean Corpuscular HGB Conc 32.7 g/dL (30-55); Mean Corpuscular Hemoglobin 32.7 pg (27-33); Mean Platelet Volume 10.4 fL (7.4-10.4); Monocytes # 1.3 10^3/uL (0.2-0.9); Monocytes % 10.9 %; Neutrophils # 8.06 10^3/uL (1.8-7.7); Neutrophils % 67.3 %; Nucleated Red Blood Cells % 0 %; Platelet Count 226 10^3/cmm (157-399); Red Blood Count 3.43 10^6/uL (3.85-5.65); Red Cell Distribution Width 12.7 % (12.1-15.1); White Blood Count 11.98 10^3/uL (3.29-11.43)
[2023-08-06 05:21] LABS: Alanine Aminotransferase 34 U/L (0-33); Albumin Level 3.6 g/dL (3.5-5.2); Alkaline Phosphatase 100 U/L (35-105); Anion Gap 12.8 (5-19); Aspartate Amino Transferase 20 U/L (0-32); Blood Urea Nitrogen 11 mg/dL (6-20); Calcium 9.3 mg/dL (8.5-10.5); Carbon Dioxide 26 mmol/L (22-29); Chloride 104 mmol/L (98-107); Globulin 3.1 g/dL (1.3-4.6); Glomerular Filtration Rate 75.3 mL/min (90-130); Glucose 109 mg/dL (65-115); Osmolality Calculated 288 mOsm/kg (285-295); Potassium 3.8 mmol/L (3.5-5.1); Sodium 139 mmol/L (136-145); Total Bilirubin 0.3 mg/dL (0.15-1.2); Total Protein 6.7 g/dL (6.6-8.7)
[2023-08-06] MEDS: heparin 5,000 unit/mL INJ 1 mL 5000 UNIT SUBCUT (06:42)
[2023-08-06] MEDS: folic acid 1 mg Tablet PO (08:06)
[2023-08-06] MEDS: spironolactone 25 mg Tablet PO (08:06)
[2023-08-06] MEDS: multivitamin therapeutic Tablet 1 TAB PO (08:06)
[2023-08-06] MEDS: valACYclovir 1,000 mg Tablet 1000 MG PO (08:06)
[2023-08-06] MEDS: pantoprazole DR 40 mg Tablet PO (08:07)
[2023-08-06] MEDS: aspirin 81 mg EC Tablet PO (08:07)
[2023-08-06] MEDS: FUROsemide 40 mg Tablet PO (08:07)
[2023-08-06] MEDS: thiamine 100 mg Tablet PO (08:07)
[2023-08-06] MEDS: metoprolol tartrate 50 mg Tablet PO (08:07)
[2023-08-06] MEDS: meropenem 2,000 MG in sodium chloride 0.9% (100 ml) 100 ML 100 MG IV (08:08)
[2023-08-06 08:35] VITALS: BP 106/74; PULSE 97; RESP 18; TEMP 36.4; O2SAT 97
[2023-08-06 12:43] VITALS: BP 106/73; PULSE 90; RESP 17; TEMP 36.4; O2SAT 96
[2023-08-06 13:38] VITALS: O2SAT 96; O2SAT 97
--- NOTE | 2023-08-06 13:42 | PM.DCS ---
Discharge Providers Date of Admission: 08/03/23 02:51 Date of Discharge: August 06, 2023 Attending Provider at Admission: Zac Morrow MD Attending Provider at Discharge: Chanda Tuttle MD Primary Care Provider: Flako Shen MD Diagnoses at Discharge Discharge Diagnosis (1) Transient ischemic attack: Status: Resolved (2) Elevated lactic acid level: Status: Resolved (3) Leukocytosis: Status: Resolved Qualifiers: Leukocytosis type: other Qualified Code(s): D72.828 - Other elevated white blood cell count (4) Seizure: Status: Resolved Reason for Visit Reason for Visit: Stroke like symptoms Hospital Course Hospital Course Patient was a transfer from [place]. She presented here with altered mental status, left-sided weakness possibly a seizure episode without any History of the same. Differentials for seizures included alcohol withdrawal versus possible meningitis as she also had intense headache photophobia neck pain difficulty flexing her neck. She was started on empiric treatment for meningitis and has been discharged to complete a course of total 10 days. LP was not done during hospital stay because she was discovered to have elevated troponins and echocardiogram showed systolic heart failure with reduced EF of 35%. She was ruled in for NSTEMI and went for coronary angiogram while remaining on heparin drip. Found to have no coronary artery disease. This was likely Takotsubo cardiomyopathy. Patient was started on Aldactone and losartan. She went into acute systolic heart failure while laying flat for placing a PICC line and is on diuresis for the same. Chest x-ray showed bilateral infiltrates likely pulmonary edema. D-dimer was negative therefore low probability of PE. Patient is on biologicals at her baseline. She did have a leukocytosis of 15,000 and elevated lactic acid when she came in. Infection could not be ruled out. UA chest x-ray blood cultures were negative. Meningitis remained the only potential source. She did receive treatment with meropenem, vancomycin, acyclovir. Patient was discharged home on aspirin, atorvastatin, cefdinir, Valtrex, Lasix, metoprolol succinate. Ideally she should have stayed for monitoring for fever for 24 to 48 hours after switching to oral dose however patient really wanted to go home. Shared decision-making was done with the patient and she was discharged home with her . They said they will be monitoring for fever and to follow-up with primary care doctor. She will come back to the hospital if she worsens. Patient also promised to complete all her medications. She will follow-up with cardiology as an outpatient as well. Physical Exam Narrative: General: No acute distress, AO x3, at bedside. HEENT: PERRLA, pupils bilaterally equal and reactive, pallors not present Chest: Normal vesicular breath sounds, no added sounds, equal good air entry bilaterally CVS: S1-S2 regular, no murmurs, no tachycardia, no gallops, no rubs Abdomen: Soft, nontender, no organomegaly, bowel sounds present Neuro: No focal deficits, no facial deformity, AO x3, power 5/5 in all limbs Urinary Catheter Management: Duenas: Cath Placed During This Visit: yes, but has since been removed by the nurse Reason for Continuing Indwelling Catheter: Decision to DC Catheter Urinary Catheter Date of Insertion: 08/03/23 Urinary Catheter Time of Insertion: 15:33 Date Urinary Catheter Removed: 08/05/23 Time Urinary Catheter Discontinued: 12:30 Discharge Data Studies Completed and Pending Completed Studies During Hospitalization Category Date Time Status CT cervical spin wo con* 15028 Routine Cat Scan 08/03/23 03:[address] head wo con* [id number] Routine Cat Scan 08/03/23 03:40 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 echo complete* [id number] Routine Ultrasound 08/03/23 03:34 Completed US liver [id number] Routine Ultrasound 08/04/23 08:06 Completed Pending at discharge Category Date Time Status Blood Cultures ([facility]) Routine Lab 08/03/23 03:27 Results Blood Cultures ([facility]) Routine Lab 08/03/23 03:27 Results MRSA [Methicillin Resistant S.aureu] Routine Lab 08/04/23 14:55 Ordered Radiology Impressions Liver Ultrasound 08/04/23 08:06 IMPRESSION: 1. No acute findings. 2. Mildly dilated extrahepatic bile ducts without visible filling defects. Probable reservoir effect from prior cholecystectomy. Distal common bile duct obstruction cannot be unequivocally excluded. Correlate with liver function tests. 3. Probable hepatic steatosis. 4. Right pleural effusion. Chest X-Ray 08/05/23 10:29 IMPRESSION: Increased right pleural effusion and interstitial opacities. Laboratory Results WBC 11.98 10^3/uL (3.29-11.43) H 08/06/23 04:40 RBC 3.43 10^6/uL (3.85-5.65) L 08/06/23 04:40 Hgb 11.20 g/dL (11.27-16.99) L 08/06/23 04:40 Hct 34.3 % (36-47) L 08/06/23 04:40 MCV 100.0 fl (85-98) H 08/06/23 04:40 MCH 32.7 pg (27-33) 08/06/23 04:40 MCHC 32.7 g/dL (30-55) 08/06/23 04:40 RDW 12.7 % (12.1-15.1) 08/06/23 04:40 Plt Count 226 10^3/cmm (157-399) 08/06/23 04:40 MPV 10.4 fL (7.4-10.4) 08/06/23 04:40 Neut % (Auto) 67.3 % 08/06/23 04:40 Lymph % (Auto) 17.5 % 08/06/23 04:40 [place] % (Auto) 10.9 % 08/06/23 04:40 Eos % (Auto) 3.1 % 08/06/23 04:40 Baso % (Auto) 0.6 % 08/06/23 04:40 Neut # (Auto) 8.06 10^3/uL (1.8-7.7) H 08/06/23 04:40 Lymph # (Auto) 2.1 10^3/uL (0.8-4.8) 08/06/23 04:40 [place] # (Auto) 1.3 10^3/uL (0.2-0.9) H 08/06/23 04:40 Eos # (Auto) 0.4 10^3/uL (0.0-0.8) 08/06/23 04:40 Baso # (Auto) 0.1 10^3/uL (0.0-0.1) 08/06/23 04:40 Nucleated RBC % (auto) 0 % 08/06/23 04:40 Nucleated RBCs # 0.0 /100WBC 08/06/23 04:40 ESR 4 mm/hr (0-15) 08/03/23 03:51 PT 13.30 SECONDS (12.1-14.9) 08/03/23 03:51 INR 0.98 (0.8-1.2) 08/03/23 03:51 APTT 42.4 SECONDS (23.9-36.7) H 08/04/23 08:44 Specimen Type Arterial 08/03/23 14:18 Sample Site Radial, right 08/03/23 14:18 ABG pH 7.41 (7.35-7.45) 08/03/23 14:18 ABG pCO2 33.4 mmHg (35-45) L 08/03/23 14:18 ABG pO2 57.7 mmHg (80.0-100.0) L 08/03/23 14:18 ABG HCO3 21.4 mmol/L (22-26) L 08/03/23 14:18 ABG O2 Saturation 88.8 08/03/23 14:18 ABG Base Excess -2.6 mmol/L (-2.0-2.0) L 08/03/23 14:18 Fidel Test Pos 08/03/23 14:18 A-a O2 Gradient 6.7 mmHg (5-10) 08/03/23 14:18 Hematocrit 35.8 % (37-47) L 08/03/23 14:18 Hgb O2 Saturation 87.4 % (95-100) L 08/03/23 14:18 Carboxyhemoglobin 0.4 %THgb (0.4-20.1) 08/03/23 14:18 Methemoglobin 1.1 % (0.4-1.5) 08/03/23 14:18 Total Hemoglobin 11.7 g/dL (12-16) L 08/03/23 14:18 Sodium 139.0 mmol/L (131-143) 08/03/23 14:18 Potassium 4.1 mmol/L (3.5-5.0) 08/03/23 14:18 Glucose 117.0 mg/dL (70-115) H 08/03/23 14:18 Ionized Calcium 1.3 mmol/L (1.1-1.4) 08/03/23 14:18 O2 Delivery Device Oxy mask 08/03/23 14:18 O2 Liters/Min 15.0 % 08/03/23 14:18 Organic Extractions Technician ID [place]ur[place] 08/03/23 14:18 Sodium 139 mmol/L (136-145) 08/06/23 04:40 Potassium 3.8 mmol/L (3.5-5.1) 08/06/23 04:40 Chloride 104 mmol/L (98-107) 08/06/23 04:40 Carbon Dioxide 26 mmol/L (22-29) 08/06/23 04:40 Anion Gap 12.8 (5-19) 08/06/23 04:40 BUN 11 mg/dL (6-20) 08/06/23 04:40 Creatinine 0.8 mg/dL (0.5-0.9) 08/06/23 04:40 GFR Calculation 75.3 mL/min (90-130) L 08/06/23 04:40 Glucose 109 mg/dL (65-115) 08/06/23 04:40 Estimat Average Glucose 114 08/03/23 03:51 Hemoglobin A1c 5.6 % (4.0-6.0) 08/03/23 03:51 Calculated Osmolality 288 mOsm/kg (285-295) 08/06/23 04:40 Lactic Acid 3.0 mmol/L (0.5-2.2) H 08/03/23 03:51 Lactic Acid (Sepsis) 2.9 mmol/L (0.5-2.2) H 08/03/23 06:53 Lactate 2.1 mmol/L (0.5-2.2) 08/03/23 14:35 Calcium 9.3 mg/dL (8.5-10.5) 08/06/23 04:40 Magnesium 1.4 mg/dL (1.7-2.3) L 08/03/23 03:51 Total Bilirubin 0.3 mg/dL (0.15-1.2) 08/06/23 04:40 AST 20 U/L (0-32) 08/06/23 04:40 ALT 34 U/L (0-33) H 08/06/23 04:40 Alkaline Phosphatase 100 U/L (35-105) 08/06/23 04:40 Ammonia 26 umol/L (11-51) 08/03/23 03:51 Creatine Kinase 162 U/L (26-192) 08/03/23 03:51 Troponin T Baseline 354 ng/L (0-10) H* 08/03/23 03:51 Troponin T 120 Minute 351.2 ng/L (0-10) H 08/03/23 06:08 Delta Troponin T -2.8 ABS# (0-10) L 08/03/23 06:08 Troponin T Hi Sens 6Hr 264.8 ng/L (0-10) H 08/03/23 10:32 Troponin T Hi Sens 6Hr Delta -89.2 ng/L (0-12) L 08/03/23 10:32 C-Reactive Protein 6.2 mg/L (0.0-4.9) H 08/03/23 03:51 NT-Pro-B Natriuret Pep 2671 pg/mL (0-125) H 08/03/23 03:51 Total Protein 6.7 g/dL (6.6-8.7) 08/06/23 04:40 Albumin 3.6 g/dL (3.5-5.2) 08/06/23 04:40 Globulin 3.1 g/dL (1.3-4.6) 08/06/23 04:40 Triglycerides 283 mg/dL (0-150) H 08/03/23 03:51 Cholesterol 223 mg/dL (0-200) H 08/03/23 03:51 LDL Cholesterol, Calc 101 mg/dL (50-129) 08/03/23 03:51 HDL Cholesterol 65 mg/dL (60-100) 08/03/23 03:51 LDL/HDL Ratio 1.55 RATIO (0.00-3.22) 08/03/23 03:51 Cholesterol/HDL Ratio 3.43 mg/dL (0.0-4.40) 08/03/23 03:51 Vitamin B12 1755 pg/mL (232-1245) H 08/03/23 03:51 Folate 6.8 ng/mL (4.8-37.3) 08/03/23 03:51 Procalcitonin 0.06 ng/mL (0-0.5) 08/03/23 03:51 TSH 1.26 uIU/mL (0.27-4.20) 08/03/23 03:51 Urine Color Yellow (Yellow) 08/03/23 05:20 Urine Appearance Sl hazy (CLEAR) A 08/03/23 05:20 Urine pH 6.5 (5-7) 08/03/23 05:20 Ur Specific [place] 1.015 (1.005-1.030) 08/03/23 05:20 Urine Protein 1+ (Negative) H 08/03/23 05:20 Urine Glucose (UA) Norm (Normal) 08/03/23 05:20 Urine Ketones 1+ (Negative) H 08/03/23 05:20 Urine Blood 3+ (Negative) H 08/03/23 05:20 Urine Nitrate Negative (Negative) 08/03/23 05:20 Urine Bilirubin 1+ (Negative) H 08/03/23 05:20 Urine Urobilinogen Neg mg/dL (Negative) 08/03/23 05:20 Ur Leukocyte Esterase Trace (Negative) H 08/03/23 05:20 Urine RBC 15-25 /hpf (0-2) H 08/03/23 05:20 Urine WBC 0-4 /hpf (0-5) H 08/03/23 05:20 Ur Squamous Epith Cells 15-25 /hpf (0-5) H 08/03/23 05:20 Amorphous Sediment Not Reportable 08/03/23 05:20 Urine Bacteria 1+ /hpf (NONE) H 08/03/23 05:20 Urine Opiates Screen Positive ng/mL (Negative) H 08/03/23 05:20 Ur Barbiturates Screen Negative ng/mL (Negative) 08/03/23 05:20 Ur Phencyclidine Scrn Negative ng/mL (Negative) 08/03/23 05:20 Ur Amphetamines Screen Negative ng/mL (Negative) 08/03/23 05:20 U Benzodiazepines Scrn Positive ng/mL (Negative) H 08/03/23 05:20 Urine Cocaine Screen Negative ng/mL (Negative) 08/03/23 05:20 U Marijuana (THC) Screen Negative ng/mL (Negative) 08/03/23 05:20 Ethyl Alcohol < 10 mg/dL (0-10) 08/03/23 03:51 Serum Ketones Negative (Negative) 08/03/23 03:51 Adenovirus (PCR) Not detected (NOT DETECT) 08/04/23 15:20 C. pneumoniae DNA (PCR) Not detected (NOT DETECT) 08/04/23 15:20 Coronavirus 229E (PCR) Not detected (NOT DETECT) 08/04/23 15:20 Hepatitis A IgM Ab Non-reactive (Nonreactive) 08/05/23 05:35 Hep Bs Antigen Non-reactive (Nonreactive) 08/05/23 05:35 Hep Bs Antibody < 3.5 (11.5-1000) L 08/05/23 05:35 Hep B Core Total Ab Non-reactive (Nonreactive) 08/05/23 05:35 Hepatitis C Antibody Non-reactive (Nonreactive) 08/05/23 05:35 Human Metapneumovir PCR Not detected (NOT DETECT) 08/04/23 15:20 Influenza A (H1) PCR Not detected (NOT DETECT) 08/04/23 15:20 Influ A (H1/09) PCR Not detected (NOT DETECT) 08/04/23 15:20 Influenza A (H3) PCR Not detected (NOT DETECT) 08/04/23 15:20 Influenza Type A (PCR) Not detected (NOT DETECT) 08/04/23 15:20 Influenza Type B (PCR) Not detected (NOT DETECT) 08/04/23 15:20 M. pneumoniae (PCR) Not detected (NOT DETECT) 08/04/23 15:20 Parainfluenza 1 (PCR) Not detected (NOT DETECT) 08/04/23 15:20 Parainfluenza 2 (PCR) Not detected (NOT DETECT) 08/04/23 15:20 Parainfluenza 3 (PCR) Not detected (NOT DETECT) 08/04/23 15:20 Parainfluenza 4 (PCR) Not detected (NOT DETECT) 08/04/23 15:20 RSV Type A (PCR) Not detected (NOT DETECT) 08/04/23 15:20 RSV Type B (PCR) Not detected (NOT DETECT) 08/04/23 15:20 Entero/Rhino (PCR) Not detected (NOT DETECT) 08/04/23 15:20 SARS-CoV-2 (PCR) Not detected (NOT DETECT) 08/04/23 15:20 Vitals Last Vital Signs Temp 97.6 F 08/06/23 12:43 Pulse 90 08/06/23 12:43 Resp 17 01/29/24 12:43 BP 106/73 08/06/23 12:43 Pulse Ox 96 08/06/23 13:38 O2 Del Method Room Air 08/06/23 12:43 O2 Flow Rate 3 08/06/23 08:00 Discharge Plan Discharge Patient Disposition: Home Condition: Stable Prescriptions: New furosemide 40 mg Tablet 40 mg PO DAILY@0800 Qty: 30 0RF atorvastatin 40 mg Tablet 40 mg PO BEDTIME Qty: 30 0RF valacyclovir 1 gram Tablet 1,000 mg PO BID 9 Days Qty: 18 0RF aspirin 81 mg Tablet,Delayed Release (Dr/Ec) 81 mg PO DAILY Qty: 30 0RF spironolactone 25 mg Tablet 25 mg PO DAILY Qty: 30 0RF folic acid 1 mg Tablet 1 mg PO DAILY Qty: 30 0RF cefdinir 300 mg Capsule 300 mg PO BID 9 Days Qty: 19 0RF Vitamin B-1 (mononitrate) 100 mg Tablet 100 mg PO DAILY 30 Days Qty: 30 0RF Thera 400 mcg Tablet 1 tab PO DAILY Qty: 30 0RF Continued zolpidem 5 mg tablet 5 mg PO 1XD metoprolol succinate 50 mg tablet extended release 24 hr 50 mg PO 2XD pantoprazole 40 mg tablet,delayed release (DR/EC) 40 mg PO 1XD Otezla 30 mg tablet 30 mg PO 2XD Cosentyx Pen (2 Pens) 150 mg/mL pen injector See Rx Instructions .ROUTE .COMPLEX Rx Instructions: 150 mg subcutaneously Once per Month fluoxetine 40 mg capsule 40 mg PO 1XD clonazepam 0.5 mg tablet 0.5 mg PO 2XD dicyclomine 20 mg tablet 20 mg PO 2XD metoclopramide HCl 10 mg tablet 10 mg PO QID potassium 99 mg PO 2XD B12 Active 500 mcg PO 1XD carbonyl iron-calcium 50-117 mg Tablet 65 tab PO 1XD Discontinued hydrochlorothiazide 25 mg tablet 25 mg PO 1XD spironolactone 100 mg tablet 100 mg PO 1XD clonidine HCl 0.1 mg tablet 0.1 mg PO 2XD Discharge Orders: Discharge Order (Routine); Ordered 08/06/23 Ordered By: Chanda Tuttle Referrals: Oamr Arriola MD [Physician] - 1 month (We have notified your physician's clinic of the need for a follow-up appointment to be scheduled. If you have not heard from them within the next 2 business days, please call them directly. ) Ana Martinez FNP [Nurse Practitioner] - 1 week (We have notified your physician's clinic of the need for a follow-up appointment to be scheduled. If you have not heard from them within the next 2 business days, please call them directly. ) Discharge Diet: Cardiac Discharge Activity: Resume usual activity Patient Instructions: Spironolactone (By mouth), Furosemide (By mouth), Aspirin (By mouth), Thiamine (By mouth), Folic Acid (By mouth), Multivitamins, Adult Formula (By mouth), Valacyclovir (By mouth), Atorvastatin (By mouth), Cefdinir (By mouth), Heart Catheterization (DC), Opioid Safety Activity Restrictions/Additional Instructions: Please monitor for fever, headache, confusion or any other worsening symptoms. You need to come back to ER if you experience any of the above as discussed. Please follow up with cardiology as outpatient along with your PCP. Discharge Attestations Time Spent in Discharge Care*: greater than 30 min Quality Metrics Clinical Quality Measures [ No reported AMI, CVA or VTE this stay] Coding Level of Care Code Acute Code for Chg Fwd Diagnoses Transient ischemic attack G45.9 Elevated lactic acid level R79.89 Other elevated white blood cell (WBC) count D72.828 Leukocytosis type: other Seizure R56.9
[2023-08-06] MEDS: cefdinir 300 MG CAPSULE PO (14:11)
== END 2023-08-06 15:03 | disposition home or self-care (01) | DRG 280 ==
LOC: ICU 07:53 → MEDSURG 08-04 16:37
PROVIDERS: Internal Medicine Cardiovascular Disease; Student in an Organized Health Care Education/Training Program; Admitting Provider Family Medicine; PCP Internal Medicine; Visit Provider Internal Medicine
PROC: 4A023N7 Measurement of Cardiac Sampling and Pressure, Left Heart, Percutaneous Approach (ICD-10-PCS; principal; 2023-08-04 12:00)
DX: I21.4 Non-ST elevation (NSTEMI) myocardial infarction (principal); G03.9 Meningitis, unspecified; I50.21 Acute systolic (congestive) heart failure; G45.9 Transient cerebral ischemic attack, unspecified; F10.139 Alcohol abuse with withdrawal, unspecified; D84.9 Immunodeficiency, unspecified; I11.0 Hypertensive heart disease with heart failure; F17.290 Nicotine dependence, other tobacco product, uncomplicated; F17.210 Nicotine dependence, cigarettes, uncomplicated; L73.2 Hidradenitis suppurativa; R56.9 Unspecified convulsions; M54.2 Cervicalgia; R51.9 Headache, unspecified; I27.20 Pulmonary hypertension, unspecified; R09.02 Hypoxemia; R74.01 Elevation of levels of liver transaminase levels; D64.9 Anemia, unspecified
CPT/HCPCS: 36415; 36573; 36592; 36600; 51702; 70450; 71045; 72125; 76705; 80051; 80053; 80061; 80306; 80307; 81001; 82009; 82140; 82330; 82550; 82607; 82746; 82805; 83036; 83605; 83735; 83880; 84145; 84443; 84484; 85025; 85347; 85610; 85651; 85730; 86140; 86403; 86705; 86706; 86709; 86803; 87040; 87340; 87486; 87581; 87633; 93005; 93306; 93458; 93880; 94664; 94760; 96372; 96376; 99152; 99153; C1751; C1769; C1887; C1894; C9113; J0133; J0696; J1200; J1644; J1940; J2060; J2185; J2250; J2405; J3010; J3370; J3411; J3490; J7030; Q9967

== ENCOUNTER → 2023-08-16 14:46 | Outpatient (BNVA) | payer OTHER, SELFPAY | PROVIDERS: PCP Internal Medicine; Visit Provider Nurse Practitioner Family | DX: I10 Essential (primary) hypertension (principal); I50.21 Acute systolic (congestive) heart failure; Z79.899 Other long term (current) drug therapy | CPT/HCPCS: 36415; 80048; 83880 ==